=== PATIENT | female | born 1960 | race Caucasian/White ===

== ENCOUNTER 2017-06-09 12:20 | Inpatient (IN) | payer BC, OTHER ==
[~2017-06-09] VITALS: Ht 160 cm; Wt 85.5 kg
[~2017-06-09 12:20] MED LIST: ADVIN25050 INH; ALBUAER2 INH; DLN100; DRV100 PO
[2017-06-09] MEDS ORDERED: ERGO500037 PO (13:44)
[2017-06-09] MEDS ORDERED: CITA10TA4 PO (13:44)
[2017-06-09] MEDS ORDERED: OMEG12006 PO (13:44)
[2017-06-09] MEDS ORDERED: ASPI81TA28 PO (13:44)
[2017-06-09] MEDS ORDERED: LSN25 PO (13:44)
[2017-06-09] MEDS ORDERED: DULA1INJ SQ (13:44)
[2017-06-09] MEDS ORDERED: ATOR-26 PO (13:44)
[2017-06-09] MEDS ORDERED: PHN/100 PO (13:44)
[2017-06-09] MEDS ORDERED: METO50TA16 PO (13:44)
[2017-06-09] MEDS ORDERED: METF-384 PO (13:44)
[2017-06-09 14:16] LABS: BASO % 0.1 %; BASO ABS # 0.01 K/uL (0-0.2); COMPLETE YES; EOS % 1.6 %; HEMATOCRIT 37.8 % (37-47); IG% 0.2 %; LYMPH % 15.1 %; LYMPH ABS # 1.83 K/uL (1.2-3.4); MEAN CELL VOLUME 82.9 fL (80-100); MEAN CORPUSCULAR HEMOGLOBIN 29.2 pg (25-34); MEAN CORPUSCULAR HGB CONC 35.2 g/dl (32-36); MONO % 8.2 %; NEUT % 74.8 %; PLATELET COUNT 197 K/uL (130-400); RED BLOOD COUNT 4.56 M/uL (4.2-5.4); WHITE BLOOD COUNT 12.15 K/uL (4.8-10.8)
[2017-06-09] MEDS ORDERED: SODIUM CHLORIDE 0.9% 1000ML 1,000 ML IV STA (14:29)
[2017-06-09] MEDS ORDERED: MoRPHine SULFATE 4 MG/ML 1 ML CARP\\VIAL IV STA (14:29)
[2017-06-09] MEDS ORDERED: ONDANSETRON INJ 2 MG/ML 2 ML VIAL IV STA (14:29)
[2017-06-09 14:34] LABS: ALT/SGPT 42 U/L (12-78); BLOOD UREA NITROGEN 10 mg/dl (7-18); BUN/CREATININE RATIO 14.6 (10-20); CALCIUM 8.9 mg/dl (8.5-10.1); CARBON DIOXIDE 28 mmol/L (21-32); CHLORIDE 103 mmol/L (98-107); CREATININE 0.67 mg/dl (0.60-1.20); GLUCOSE 189 mg/dl (70-99); POTASSIUM 3.8 mmol/L (3.5-5.1); SODIUM 137 mmol/L (136-145)
[2017-06-09 14:37] LABS: ALB/GLOB RATIO 0.9 (0.9-2); ALKALINE PHOSPHATASE 223 U/L (45-117); AST/SGOT 19 U/L (15-37)
[2017-06-09 14:46] LABS: MANUAL MICROSCOPIC REQUIRED? YES; REVIEW REQ? NO; SULFASALICYLIC ACID NEG (NEG); URINE APPEARANCE CLEAR (CLEAR); URINE COLOR ORANGE
[2017-06-09 14:47] LABS: URINE SPECIFIC GRAVITY 1.033 (1.000-1.030)
[2017-06-09 14:53] LABS: URINE MUCUS PRESENT (NONE PRSENT)
[2017-06-09 14:56] LABS: URINE RBC 0-4 /hpf (0-4)
[2017-06-09 14:57] LABS: URINE BACTERIA NEG (NEG)
[2017-06-09 14:58] LABS: ZZUR CULT IF INDIC CLEAN CATCH NO
[2017-06-09] MEDS ORDERED: OPTIRAY 320 IV PRN (16:15)
--- NOTE | 2017-06-09 16:25 | DIAGNOSTIC IMAGING REPORT ---
CT OF THE ABDOMEN AND PELVIS WITH CONTRAST CLINICAL HISTORY: Lower abdominal pain. COMPARISON STUDY: None. TECHNIQUE: Following IV administration of 93 mL of Optiray-320, axial images of the abdomen and pelvis were obtained from the lung bases to the proximal femurs. Images were reviewed in the axial, sagittal, and coronal planes. IV contrast was administered without complication. A dose lowering technique was utilized adhering to the principles of ALARA. CT DOSE: 660.84 mGy.cm FINDINGS: The liver, spleen, left adrenal gland, kidneys and pancreas are normal. Note is made of a 2.3 cm intermediate attenuation right adrenal nodule. There is no biliary or pancreatic ductal dilatation. Note is made of moderate circumferential wall thickening of the mid sigmoid colon with moderate pericolonic infiltration. There are scattered colonic diverticula. Note is made of a 2.6 x 1.5 cm pericolonic fluid collection along the right lateral aspect of the sigmoid colon with mild peripheral enhancement which suggest a small abscess. The IVC is duplicated. No suspicious skeletal lesions are present. IMPRESSION: 1. Acute sigmoid diverticulitis with moderate circumferential wall thickening and associated pericolonic infiltration. 2.6 x 1.5 cm pericolonic abscess along the right lateral wall of the sigmoid colon. No free air. The wall thickening is likely inflammatory in etiology however a follow-up colonoscopy once the patient's symptoms resolve is recommended to exclude the possibility of an underlying mass. 2. 2.3 cm right adrenal nodule. This nodule is indeterminate although statistically benign in the absence of known malignancy. Electronically signed by: Malik Heaton M.D. 06/09/2017 4:24 PM Dictated Date/Time: 06/09/2017 4:15 PM
[2017-06-09] MEDS ORDERED: METRONIDAZOLE 500MG / 100ML NSS IV STA (16:29)
[2017-06-09] MEDS ORDERED: CIPROFLOXACIN 400MG / 200ML D5W IV STA (16:48)
[2017-06-09] MEDS ORDERED: CIPROFLOXACIN 400MG / 200ML D5W IV ONE (17:15)
[2017-06-09 17:32] VITALS: Ht 160 cm; Wt 85.5 kg
--- NOTE | 2017-06-09 17:35 | EMERGENCY ROOM VISIT NOTE ---
History Report prepared by Gonzalez: Desean Silva Under the Supervision of: Dr. Leon Enamorado D.O. First contact with patient: 14:07 Chief Complaint: ABDOMINAL PAIN Stated Complaint: BAD PAINS UNDER BELLY History of Present Illness The patient is a 57 year old female who presents to the Emergency Room with complaints of persistent lower abdominal pain beginning 2-3 weeks ago. She states that her pain resolved, but then returned yesterday. She has no history of abdominal surgeries. She denies any cough, urinary symptoms, runny nose, rash , vaginal discharge, nausea, vomiting, or diarrhea. Patient has no other complaints at this time. No history of diverticulitis. Movement does ache her pain worse. No real remitting factors. This pain has been significantly worsens last night. Source of History: patient Onset: 2-3 weeks ago Position: abdomen (lower) Timing: other (persistent) Modifying Factors (Worsening): other (none) Modifying Factors (Relieving): other (none) Associated Symptoms: No cough, No nausea, No vomiting, No urinary symptoms Note: The patient denies any vaginal discharge or runny nose. Review of Systems See HPI for pertinent positives & negatives. A total of 10 systems reviewed and were otherwise negative. Past Medical & Surgical Medical Problems: (1) No Known Active Medical Problems Family History No pertinent family history stated. Social History Smoking Status: Never Smoker Housing Status: lives with family Current/Historical Medications Scheduled Aspirin (Aspirin Ec), 81 MG PO DAILY Atorvastatin (Lipitor), 80 MG PO DAILY Citalopram Hydrobromide (Citalopram Hydrobromide), 1 TAB PO DAILY Dulaglutide (Trulicity), 0.75 MG SQ WK Ergocalciferol (Vitamin D 87158 Unit), 50,000 UNIT PO WK Lisinopril (Lisinopril), 2.5 MG PO DAILY Metformin Hcl (Glucophage), 1,000 MG PO BID Metoprolol Tartrate (Lopressor) (Lopressor), 50 MG PO BID [place]-3 Fatty Acids ([place] 3), 1 CAP PO BID Phenytoin Sodium (Dilantin), 300 MG PO BID Allergies Coded Allergies: No Known Allergies (Verified , 06/09/17) Physical Exam Vital Signs Date Time Temp Pulse Resp B/P (MAP) Pulse Ox O2 Delivery O2 Flow Rate FiO2 06/09/17 16:12 91 18 116/70 94 Room Air 06/09/17 15:00 99 18 123/77 94 Room Air 06/09/17 13:58 97 18 124/74 96 Room Air 06/09/17 12:22 37.0 116 17 146/80 94 Room Air Physical Exam GENERAL: Sitting up in bed, alert, well appearing, well nourished, no distress, non-toxic EYE EXAM: normal conjunctiva OROPHARYNX: no exudate, no erythema, lips, buccal mucosa, and tongue normal and mucous membranes are moist NECK: supple, no nuchal rigidity, no adenopathy, non-tender LUNGS: Clear to auscultation. Normal chest wall mechanics HEART: no murmurs, S1 normal and S2 normal ABDOMEN: abdomen soft, tenderness in the infraumbilical region, normo-active bowel sounds, no masses, no rebound or guarding. BACK: Back is symmetrical on inspection and there is no deformity, no midline tenderness, no CVA tenderness. SKIN: no rashes and no bruising UPPER EXTREMITIES: upper extremities are grossly normal. LOWER EXTREMITIES: No pitting edema. NEURO EXAM: Normal sensorium, cranial nerves II-XII grossly intact, normal speech, no gross weakness of arms, no gross weakness of legs. Medical Decision & Procedures ER Provider Diagnostic Interpretation: CT:Per my review, radiologist interpretation. CT OF THE ABDOMEN AND PELVIS WITH CONTRAST FINDINGS: The liver, spleen, left adrenal gland, kidneys and pancreas are normal. Note is made of a 2.3 cm intermediate attenuation right adrenal nodule. There is no biliary or pancreatic ductal dilatation. Note is made of moderate circumferential wall thickening of the mid sigmoid colon with moderate pericolonic infiltration. There are scattered colonic diverticula. Note is made of a 2.6 x 1.5 cm pericolonic fluid collection along the right lateral aspect of the sigmoid colon with mild peripheral enhancement which suggest a small abscess. The IVC is duplicated. No suspicious skeletal lesions are present. IMPRESSION: 1. Acute sigmoid diverticulitis with moderate circumferential wall thickening and associated pericolonic infiltration. 2.6 x 1.5 cm pericolonic abscess along the right lateral wall of the sigmoid colon. No free air. The wall thickening is likely inflammatory in etiology however a follow-up colonoscopy once the patient's symptoms resolve is recommended to exclude the possibility of an underlying mass. 2. 2.3 cm right adrenal nodule. This nodule is indeterminate although statistically benign in the absence of known malignancy. Electronically signed by: Malik Heaton M.D. Laboratory Results 06/09/17 13:58 Red Blood Count 4.56, Mean Corpuscular Volume 82.9, Mean Corpuscular Hemoglobin 29.2, Mean Corpuscular Hemoglobin Concent 35.2, Mean Platelet Volume 9.0, Neutrophils (%) (Auto) 74.8, Lymphocytes (%) (Auto) 15.1, Monocytes (%) (Auto) 8.2, Eosinophils (%) (Auto) 1.6, Basophils (%) (Auto) 0.1, Neutrophils # (Auto) 9.09, Lymphocytes # (Auto) 1.83, Monocytes # (Auto) 1.00, Eosinophils # (Auto) 0.19, Basophils # (Auto) 0.01 06/09/17 13:58 Test 06/09/17 13:58 White Blood Count 12.15 K/uL (4.8-10.8) Red Blood Count 4.56 M/uL (4.2-5.4) Hemoglobin 13.3 g/dL (12.0-16.0) Hematocrit 37.8 % (37-47) Mean Corpuscular Volume 82.9 fL (80-100) Mean Corpuscular Hemoglobin 29.2 pg (25-34) Mean Corpuscular Hemoglobin Concent 35.2 g/dl (32-36) Platelet Count 197 K/uL (130-400) Mean Platelet Volume 9.0 fL (7.4-10.4) Neutrophils (%) (Auto) 74.8 % Lymphocytes (%) (Auto) 15.1 % Monocytes (%) (Auto) 8.2 % Eosinophils (%) (Auto) 1.6 % Basophils (%) (Auto) 0.1 % Neutrophils # (Auto) 9.09 K/uL (1.4-6.5) Lymphocytes # (Auto) 1.83 K/uL (1.2-3.4) Monocytes # (Auto) 1.00 K/uL (0.11-0.59) Eosinophils # (Auto) 0.19 K/uL (0-0.5) Basophils # (Auto) 0.01 K/uL (0-0.2) RDW Standard Deviation 41.4 fL (36.4-46.3) RDW Coefficient of Variation 13.8 % (11.5-14.5) Immature Granulocyte % (Auto) 0.2 % Immature Granulocyte # (Auto) 0.03 K/uL (0.00-0.02) Urine Color ORANGE Urine Appearance CLEAR (CLEAR) Urine pH (4.5-7.5) Urine Specific [place] 1.033 (1.000-1.030) Urine Protein NEG (NEG) Urine Glucose (UA) (NEG) Urine Ketones (NEG) Urine Occult Blood (NEG) Urine Nitrite (NEG) Urine Bilirubin (NEG) Urine Urobilinogen (NEG) Urine Leukocyte Esterase (NEG) Urine WBC (Auto) /hpf (0-5) Urine RBC (Auto) /hpf (0-4) Urine Hyaline Casts (Auto) /lpf (0-5) Urine Epithelial Cells (Auto) /lpf (0-5) Urine Bacteria (Auto) (NEG) Urine RBC 0-4 /hpf (0-4) Urine WBC 1-5 /hpf (0-5) Urine Epithelial Cells 0-5 /lpf (0-5) Urine Bacteria NEG (NEG) Urine Mucus PRESENT (NONE PRSENT) Anion Gap 6.0 mmol/L (3-11) Est Creatinine Clear Calc Drug Dose 93.7 ml/min Estimated GFR () 111.5 Estimated GFR (Non- 96.2 BUN/Creatinine Ratio 14.6 (10-20) Calcium Level 8.9 mg/dl (8.5-10.1) Total Bilirubin 0.3 mg/dl (0.2-1) Direct Bilirubin < 0.1 mg/dl (0-0.2) Aspartate Amino Transf (AST/SGOT) 19 U/L (15-37) Alanine Aminotransferase (ALT/SGPT) 42 U/L (12-78) Alkaline Phosphatase 223 U/L (45-117) Total Protein 7.6 gm/dl (6.4-8.2) Albumin 3.5 gm/dl (3.4-5.0) Globulin 4.1 gm/dl (2.5-4.0) Albumin/Globulin Ratio 0.9 (0.9-2) Lipase 95 U/L (73-393) Laboratory results per my review. Medications Administered Medications (Trade) Dose Ordered Sig/Jane Route Start Time Stop Time Status Last Admin Dose Admin Sodium Chloride 1,000 ml @ 999 mls/hr Q1H1M STAT IV 06/09/17 14:29 06/09/17 15:29 DC 06/09/17 14:51 999 MLS/HR Ondansetron HCl (Zofran Inj) 4 mg NOW STAT IV 06/09/17 14:29 06/09/17 14:30 DC 06/09/17 14:53 4 MG Morphine Sulfate (MoRPHine SULFATE INJ) 4 mg NOW STAT IV 06/09/17 14:29 06/09/17 14:30 DC 06/09/17 14:54 4 MG Metronidazole (Flagyl / Nss) 500 mg NOW STAT IV 06/09/17 16:29 06/09/17 16:31 DC 06/09/17 16:50 500 MG ED Course ED COURSE: Vital signs were reviewed and showed borderline tachycardia. The patients medical record was reviewed The above diagnostic studies were performed and reviewed. ED treatments and interventions as stated above. 1425: The patient was evaluated in room B6. A complete history and physical examination was performed. 1429: Ordered Sodium Chloride 1000 ml @ 999 mls/hr IV, Zofran Inj 4 mg IV, Morphine Sulfate 4 mg IV. 1629: Ordered Flagyl / Sodium Chloride 500 ml @ mg mls/hr IV. 1715: Ordered Cipro / D5W 400 mg IV. Upon reevaluation, the patient is resting comfortably. I discussed my findings with the patient and she understands and agrees with the treatment plan. Based on the patients age, coexisting illnesses, exam and lab findings the decision to treat as an inpatient was made. The patient remained stable while under my care. The patient will be evaluated for further management. Medical Decision Differential diagnoses includes but is not limited to gastritis, peptic ulcer disease, GERD, gallbladder disease, pancreatitis, small bowel obstruction, acute coronary syndrome, pericarditis, ischemic bowel, irritable bowel disease, irritable bowel syndrome, appendicitis, diverticulitis, malignancy, hernia, urinary tract infection, torsion, perforation, trauma, infectious. Patient is a 57-year-old female who presents the ER for lower abdominal pain which has been present off-and-on for the past week. She is slightly tachycardic. White count 12,000. BMP along with LFTs, bilirubin and lipase was unremarkable. UA was unremarkable. CT of the abdomen and pelvis shows diverticulitis with a small sigmoid abscess. I discussed this with general surgery and they agreed with observation overnight and IV antibiotics including Cipro and Flagyl. Patient was updated at bedside. She was discussed with internal medicine and will be admitted for further workup. Medication Reconcilliation Current Medication List: was personally reviewed by me Blood Pressure Screening Patient's blood pressure: Elevated blood pressure Blood pressure disposition: Elevated BP felt to be situational Consults Time Called: 1631 Consulting Physician: Dr. Starr -General Surgery Returned Call: [phone] I reviewed the patient's case with Dr. Starr. General surgery will consult on the patient. Additional Consults: Time Called: 1700 Consulted Physician: Cecelia Esposito Returned Call: [phone] Additional Comments: I reviewed the patient's case with Cecelia Piedra will evaluate the patient for further management. Impression Primary Impression: Diverticulitis of intestine with abscess Scribe Attestation The scribe's documentation has been prepared under my direction and personally reviewed by me in its entirety. I confirm that the note above accurately reflects all work, treatment, procedures, and medical decision making performed by me. Departure Information Dispostion Being Evaluated By Hospitalist Referrals Sonia Martin D.O. (PCP) Patient Instructions My [facility] Problem Qualifiers Primary Impression: Diverticulitis of intestine with abscess Diverticulitis site: large intestine Diverticulitis bleeding: without bleeding Qualified Codes: K57.20 - Diverticulitis of large intestine with perforation and abscess without bleeding
[2017-06-09] MEDS ORDERED: ONDANSETRON INJ 2 MG/ML 2 ML VIAL IV PRN (18:00)
[2017-06-09] MEDS ORDERED: DEXTROSE 50% 50 ML SYR IV PRN (18:15)
[2017-06-09] MEDS ORDERED: GLUCOSE 40% GEL 15 GM TUBE PO PRN (18:15)
[2017-06-09] MEDS ORDERED: GLUCOSE 10 TABS/TUBE PO PRN (18:15)
[2017-06-09] MEDS ORDERED: GLUCAGON FOR INJ 1 MG VIAL SQ PRN (18:15)
[2017-06-09] MEDS ORDERED: MoRPHine SULFATE 4 MG/ML 1 ML CARP\\VIAL ONE (18:16)
[2017-06-09] MEDS: MoRPHine SULFATE 4 MG/ML 1 ML CARP\\VIAL IV PRN ×2 (18:34→21:58)
--- NOTE | 2017-06-09 18:55 | History and Physical ---
History & Physical Date & Time of Service: Jun 09, 2017 at 18:25 Chief Complaint: Bad Pains Under Belly Primary Care Physician: Sonia Martin D.O. History of Present Illness Source: patient, clinic records This is a 57 y/o female with PMH of DM type 2, HTN, HL, epilepsy, who presents to the ED with abdominal pain. Patient reports LLQ abdominal pain x 2 weeks. Initially thought she had a UTI, took Azo and started to feel better, then pain worsened again yesterday. Describes pain as stabbing in LLQ. Morphine in ER helped but now pain is back rated 10/10. No provoking factors. Had 2 episodes of diarrhea yesterday then formed stool, last BM earlier today. Appetite is normal. Denies fevers, chills, weakness, dizziness, chest pain, SOB, N/V, GI bleeding, dysuria, frequency, weight loss. Denies recent travel or antibiotics. No prior episode of diverticulitis. Never had colonoscopy. No abdominal surgeries. Past Medical/Surgical History Medical Problems: (1) DM type 2 (diabetes mellitus, type 2) Status: Chronic (2) Dyslipidemia Status: Chronic (3) Epilepsy Status: Chronic (4) Hypertension Status: Chronic Surgical Problems: (1) History of knee surgery Status: Chronic Family History FH: thyroid cancer Denies family hx of colon cancer. Social History Smoking Status: Never Smoker Alcohol Use: none Immunizations History of Influenza Vaccine: N/A History of Tetanus Vaccine?: Yes History of Pneumococcal: No History of Hepatitis B Vaccine: Yes Multi-Drug Resistant Organisms History of MDRO: No Allergies Coded Allergies: No Known Allergies (Verified , 06/09/17) Home Medications Scheduled Aspirin (Aspirin Ec), 81 MG PO DAILY Atorvastatin (Lipitor), 80 MG PO DAILY Citalopram Hydrobromide (Citalopram Hydrobromide), 1 TAB PO DAILY Dulaglutide (Trulicity), 0.75 MG SQ WK Ergocalciferol (Vitamin D 48121 Unit), 50,000 UNIT PO WK Lisinopril (Lisinopril), 2.5 MG PO DAILY Metformin Hcl (Glucophage), 1,000 MG PO BID Metoprolol Tartrate (Lopressor) (Lopressor), 50 MG PO BID [place]-3 Fatty Acids ([place] 3), 1 CAP PO BID Phenytoin Sodium (Dilantin), 300 MG PO BID Review of Systems Ten systems reviewed and negative except as noted in HPI. Physical Exam Vital Signs Date Time Temp Pulse Resp B/P (MAP) Pulse Ox O2 Delivery O2 Flow Rate FiO2 06/09/17 17:32 Room Air 06/09/17 16:12 91 18 116/70 94 Room Air 06/09/17 15:00 99 18 123/77 94 Room Air 06/09/17 13:58 97 18 124/74 96 Room Air 06/09/17 12:22 37.0 116 17 146/80 94 Room Air General Appearance: WD/WN, no apparent distress Head: normocephalic, atraumatic Eyes: normal inspection, PERRL, EOMI ENT: hearing grossly normal, pharynx normal Neck: supple, trachea midline Respiratory/Chest: lungs clear, normal breath sounds, no respiratory distress, no accessory muscle use Cardiovascular: no murmur, + tachycardia (mildly tachycardic, HR 100, regular rhythm) Abdomen/GI: normal bowel sounds, soft, + pertinent finding (tenderness across entire lower abdomen, especially LLQ. no rebound. no guarding. ) Extremities/Musculoskelatal: no calf tenderness, no pedal edema Neurologic/Psych: alert, normal mood/affect, oriented x 3 Skin: normal color, warm/dry Diagnostics Laboratory Results Results Past 24 Hours Test 06/09/17 13:58 06/09/17 17:43 06/09/17 18:00 06/09/17 18:24 Range/Units White Blood Count 12.15 4.8-10.8 K/uL Red Blood Count 4.56 4.2-5.4 M/uL Hemoglobin 13.3 12.0-16.0 g/dL Hematocrit 37.8 37-47 % Mean Corpuscular Volume 82.9 80-100 fL Mean Corpuscular Hemoglobin 29.2 25-34 pg Mean Corpuscular Hemoglobin Concent 35.2 32-36 g/dl Platelet Count 197 130-400 K/uL Mean Platelet Volume 9.0 7.4-10.4 fL Neutrophils (%) (Auto) 74.8 % Lymphocytes (%) (Auto) 15.1 % Monocytes (%) (Auto) 8.2 % Eosinophils (%) (Auto) 1.6 % Basophils (%) (Auto) 0.1 % Neutrophils # (Auto) 9.09 1.4-6.5 K/uL Lymphocytes # (Auto) 1.83 1.2-3.4 K/uL Monocytes # (Auto) 1.00 0.11-0.59 K/uL Eosinophils # (Auto) 0.19 0-0.5 K/uL Basophils # (Auto) 0.01 0-0.2 K/uL RDW Standard Deviation 41.4 36.4-46.3 fL RDW Coefficient of Variation 13.8 11.5-14.5 % Immature Granulocyte % (Auto) 0.2 % Immature Granulocyte # (Auto) 0.03 0.00-0.02 K/uL Urine Color ORANGE Urine Appearance CLEAR CLEAR Urine pH 4.5-7.5 Urine Specific [place] 1.033 1.000-1.030 Urine Protein NEG NEG Urine Glucose (UA) NEG Urine Ketones NEG Urine Occult Blood NEG Urine Nitrite NEG Urine Bilirubin NEG Urine Urobilinogen NEG Urine Leukocyte Esterase NEG Urine WBC (Auto) 0-5 /hpf Urine RBC (Auto) 0-4 /hpf Urine Hyaline Casts (Auto) 0-5 /lpf Urine Epithelial Cells (Auto) 0-5 /lpf Urine Bacteria (Auto) NEG Urine RBC 0-4 0-4 /hpf Urine WBC 1-5 0-5 /hpf Urine Epithelial Cells 0-5 0-5 /lpf Urine Bacteria NEG NEG Urine Mucus PRESENT NONE PRSENT Sodium Level 137 136-145 mmol/L Potassium Level 3.8 3.5-5.1 mmol/L Chloride Level 103 98-107 mmol/L Carbon Dioxide Level 28 21-32 mmol/L Anion Gap 6.0 3-11 mmol/L Blood Urea Nitrogen 10 7-18 mg/dl Creatinine 0.67 0.60-1.20 mg/dl Est Creatinine Clear Calc Drug Dose 93.7 ml/min Estimated GFR () 111.5 Estimated GFR (Non- 96.2 BUN/Creatinine Ratio 14.6 10-20 Random Glucose 189 70-99 mg/dl Calcium Level 8.9 8.5-10.1 mg/dl Total Bilirubin 0.3 0.2-1 mg/dl Direct Bilirubin < 0.1 0-0.2 mg/dl Aspartate Amino Transf (AST/SGOT) 19 15-37 U/L Alanine Aminotransferase (ALT/SGPT) 42 12-78 U/L Alkaline Phosphatase 223 45-117 U/L Total Protein 7.6 6.4-8.2 gm/dl Albumin 3.5 3.4-5.0 gm/dl Globulin 4.1 2.5-4.0 gm/dl Albumin/Globulin Ratio 0.9 0.9-2 Lipase 95 73-393 U/L Diagnostic Radiology CT OF THE ABDOMEN AND PELVIS WITH CONTRAST IMPRESSION: 1. Acute sigmoid diverticulitis with moderate circumferential wall thickening and associated pericolonic infiltration. 2.6 x 1.5 cm pericolonic abscess along the right lateral wall of the sigmoid colon. No free air. The wall thickening is likely inflammatory in etiology however a follow-up colonoscopy once the patient's symptoms resolve is recommended to exclude the possibility of an underlying mass. 2. 2.3 cm right adrenal nodule. This nodule is indeterminate although statistically benign in the absence of known malignancy. Impression Assessment and Plan ACUTE SIGMOID DIVERTICULITIS WITH ABSCESS Initial episode Afebrile, + leukocytosis (WBC slightly >12K), mild tachycardia (HR 90's-100's), check lactic acid IV Cipro and Flagyl, IVF's, PRN morphine Clear liquid diet Consult general surgery- Dr. Starr made aware by ER provider MODERATE COLON WALL THICKENING Seen on CT, radiology read as likely inflammatory but recommended f/u colonoscopy to exclude underlying mass Alk phos elevated Check CEA Outpatient colonoscopy ADRENAL NODULE CT a/p- 2.3 cm right adrenal nodule. This nodule is indeterminate although statistically benign in the absence of known malignancy. F/u as outpatient DM TYPE 2 Hold metformin and Trulicity Novolog sliding scale coverage HYPERTENSION Stable, continue lisinopril and metoprolol EPILEPSY Controlled- no recent seizure Continue Dilantin DYSLIPIDEMIA Continue statin DVT PROPHYLAXIS SCD's, Heparin SQ DISPOSITION Admission to med/ surg Follows with Dr. Martin for primary care Patient seen in collaboration with Dr. Aguilar. Please see his addendum. ADDENDUM: I saw this patient in the ER, in room B6 - she presented with severe abdominal pain; had a few episodes of diarrhea, denies bleeding. Pain persisted even without her trying OTC Azo for what she thought was a UTI Upon presentation, had CT abdomen done - showed an acute diverticulitis with abscess started on IV abx. IVFs, clear liquids surgery consult pending Advanced Directives Existing Living Will: No Existing Power of Sales And Operations Trainee: No VTE Prophylaxis VTE Risk Assessment Done? Y/N: Yes Risk Level: Moderate Given or contraindicated: Unfractionated heparin SQ, SCD's
[2017-06-09 19:45] VITALS: BP 118/70; PULSE 101; TEMP 37.6; O2SAT 92
[2017-06-09 20:29] LABS: PROTHROMBIN TIME (PATIENT) 10.5 SECONDS (9.0-12.0)
[2017-06-09] MEDS: SODIUM CHLORIDE 0.9% 1000ML 1,000 ML IV SCH (21:27)
[2017-06-09] MEDS: OMEGA-3 (PURIFIED FISH OIL) 1 GM CAP PO SCH (21:29)
[2017-06-09] MEDS: METOPROLOL TARTRATE 50 MG TAB PO SCH (21:31)
[2017-06-09] MEDS: INSULIN ASPART 100 UNITS/ML 3 ML PEN SC SCH (21:40)
[2017-06-09] MEDS: HEPARIN SOD 5000 UNIT/0.5 ML CARP SQ SCH (21:41)
[2017-06-09] MEDS: PHENYTOIN SODIUM ER 100 MG CAP PO SCH (21:42)
[2017-06-09 22:56] VITALS: BP 112/70; PULSE 96; TEMP 37; O2SAT 94
[2017-06-09] MEDS: ACETAMINOPHEN 325 MG TAB PO PRN (23:57)
[2017-06-09] MEDS: METRONIDAZOLE / NSS 500 MG in PREMIXED NSS 100 ML IV SCH (23:57)
[2017-06-10] MEDS: SODIUM CHLORIDE 0.9% 1000ML 1,000 ML IV SCH ×3 (04:17→23:21)
[2017-06-10] MEDS: MoRPHine SULFATE 4 MG/ML 1 ML CARP\\VIAL IV PRN (05:45)
[2017-06-10] MEDS: CIPROFLOXACIN / D5W 400 MG in PREMIXED IN D5W 200 ML IV SCH ×2 (05:45→18:30)
[2017-06-10] MEDS: HEPARIN SOD 5000 UNIT/0.5 ML CARP SQ SCH ×3 (05:45→21:35)
[2017-06-10] MEDS ORDERED: CIPROFLOXACIN 400MG / 200ML D5W IV ONE (06:00)
[2017-06-10 06:32] LABS: HEMATOCRIT 32.5 % (37-47); MEAN CELL VOLUME 83.8 fL (80-100); MEAN CORPUSCULAR HEMOGLOBIN 28.6 pg (25-34); MEAN CORPUSCULAR HGB CONC 34.2 g/dl (32-36); MEAN PLATELET VOLUME 9.1 fL (7.4-10.4); PLATELET COUNT 156 K/uL (130-400); RED BLOOD COUNT 3.88 M/uL (4.2-5.4); WHITE BLOOD COUNT 10.18 K/uL (4.8-10.8)
[2017-06-10 06:59] VITALS: BP 113/72; PULSE 101; TEMP 37.2; O2SAT 91
[2017-06-10] MEDS: METRONIDAZOLE / NSS 500 MG in PREMIXED NSS 100 ML IV SCH ×3 (08:17→23:21)
[2017-06-10] MEDS ORDERED: ASPIRIN 81 MG ECTAB PO SCH (09:00)
[2017-06-10] MEDS: PHENYTOIN SODIUM ER 100 MG CAP PO SCH ×2 (09:11→21:27)
[2017-06-10 09:14] VITALS: BP 117/74; PULSE 100
[2017-06-10] MEDS: METOPROLOL TARTRATE 50 MG TAB PO SCH ×2 (09:14→21:27)
[2017-06-10] MEDS: CITALOPRAM 20 MG TAB PO SCH (09:15)
[2017-06-10] MEDS: LISINOPRIL 2.5 MG TAB PO SCH (09:16)
[2017-06-10] MEDS: ATORVASTATIN 40 MG TAB PO SCH (09:16)
[2017-06-10] MEDS: OMEGA-3 (PURIFIED FISH OIL) 1 GM CAP PO SCH ×2 (09:17→21:27)
[2017-06-10] MEDS: INSULIN ASPART 100 UNITS/ML 3 ML PEN SC SCH ×4 (09:21→21:00)
--- NOTE | 2017-06-10 11:38 | Surgery Consultation ---
Consultation Date of Consultation: Jun 10, 2017. Attending Physician: Sravanthi Aguilar DO History of Present Illness pt presented with lower abdominal pain.... ct findings of acute diverticulitis. feeling better now than at admission. Past Medical/Surgical History Medical Problems: (1) Diverticulitis of intestine with abscess Status: Acute Family History FH: thyroid cancer Social History Smoking Status: Never Smoker Alcohol Use: none Housing Status: lives with family Allergies Coded Allergies: No Known Allergies (Verified , 06/09/17) Home Medications Scheduled Aspirin (Aspirin Ec), 81 MG PO DAILY Atorvastatin (Lipitor), 80 MG PO DAILY Citalopram Hydrobromide (Citalopram Hydrobromide), 1 TAB PO DAILY Dulaglutide (Trulicity), 0.75 MG SQ WK Ergocalciferol (Vitamin D 76436 Unit), 50,000 UNIT PO WK Lisinopril (Lisinopril), 2.5 MG PO DAILY Metformin Hcl (Glucophage), 1,000 MG PO BID Metoprolol Tartrate (Lopressor) (Lopressor), 50 MG PO BID Palmetto-3 Fatty Acids (Palmetto 3), 1 CAP PO BID Phenytoin Sodium (Dilantin), 300 MG PO BID Current Inpatient Medications Current Inpatient Medications Medications (Trade) Dose Ordered Sig/Jane Route Start Time Stop Time Status Last Admin Dose Admin Ioversol (Optiray 320) 111 ml UD PRN IV 06/09/17 16:15 06/13/17 16:14 Morphine Sulfate (MoRPHine SULFATE INJ) 4 mg Q4H PRN IV 06/09/17 18:00 06/23/17 17:59 06/10/17 05:45 4 MG Sodium Chloride 1,000 ml @ 100 mls/hr Q10H IV 06/09/17 18:00 07/09/17 17:59 06/10/17 04:17 100 MLS/HR Acetaminophen (Tylenol Tab) 650 mg Q4H PRN PO 06/09/17 18:00 07/09/17 17:59 06/09/17 23:57 650 MG Ondansetron HCl (Zofran Inj) 4 mg Q6H PRN IV 06/09/17 18:00 07/09/17 17:59 06/10/17 05:54 4 MG Insulin Aspart (novoLOG ASPART) SLIDING SCALE If C... ACHS SC 06/09/17 21:00 07/09/17 20:59 06/10/17 09:21 9 UNITS Glucose (Glucose 40% Gel) 15-30 GRAMS 15 GRAMS... UD PRN PO 06/09/17 18:15 07/09/17 18:14 Glucose (Glucose Chew Tab) 4-8 Tablets 4 Tabl... UD PRN PO 06/09/17 18:15 07/09/17 18:14 Dextrose (Dextrose 50% 50ML Syringe) 25-50ML OF 50% DW IV FOR... UD PRN IV 06/09/17 18:15 07/09/17 18:14 Glucagon (Glucagon Inj) 1 mg UD PRN SQ 06/09/17 18:15 07/09/17 18:14 Atorvastatin Calcium (Lipitor Tab) 80 mg DAILY PO 06/10/17 09:00 07/10/17 08:59 06/10/17 09:16 80 MG Lisinopril (Zestril Tab) 2.5 mg DAILY PO 06/10/17 09:00 07/10/17 08:59 06/10/17 09:16 2.5 MG Metoprolol Tartrate (Lopressor Tab) 50 mg BID PO 06/09/17 21:00 07/09/17 20:59 06/10/17 09:14 50 MG Phenytoin Sodium (Dilantin Er Cap) 300 mg BID PO 06/09/17 21:00 07/09/17 20:59 06/10/17 09:11 300 MG Citalopram Hydrobromide (celeXA TAB) 10 mg DAILY PO 06/10/17 09:00 07/10/17 08:59 06/10/17 09:15 10 MG Fish Oil (Palmet[place]-3 (Purified Fish Oil) Cap) 1 gm BID PO 06/09/17 21:00 07/09/17 20:59 06/10/17 09:17 1 GM Heparin Sodium (Porcine) (Heparin Sq 5000 Unit/0.5ml) 5,000 unit Q8 SQ 06/09/17 22:00 07/09/17 21:59 06/10/17 05:45 5,000 UNIT Metronidazole 500 mg/Prmx 100 ml @ 100 mls/hr Q8H IV 06/10/17 00:00 06/20/17 00:00 06/10/17 08:17 100 MLS/HR Ciprofloxacin/ Dextrose 400 mg/ Prmx 200 ml @ 100 mls/hr Q12H IV 06/10/17 06:00 06/20/17 05:59 06/10/17 05:45 100 MLS/HR Review of Systems Abdomen: + pain Physical Exam Date Time Temp Pulse Resp B/P (MAP) Pulse Ox O2 Delivery O2 Flow Rate FiO2 06/10/17 09:14 100 117/74 (88) 06/10/17 06:59 37.2 101 16 113/72 (86) 91 Room Air 06/09/17 23:50 Room Air 06/09/17 22:56 37.0 96 16 112/70 (84) 94 Room Air 06/09/17 19:45 Room Air 06/09/17 19:45 37.6 101 18 118/70 (86) 92 Room Air 06/09/17 19:25 97 18 124/74 96 Room Air 06/09/17 18:44 37.0 97 18 124/74 96 06/09/17 18:35 92 18 117/70 94 Room Air 06/09/17 17:32 Room Air 06/09/17 16:12 91 18 116/70 94 Room Air 06/09/17 15:00 99 18 123/77 94 Room Air 06/09/17 13:58 97 18 124/74 96 Room Air 06/09/17 12:22 37.0 116 17 146/80 94 Room Air General Appearance: no apparent distress Head: normocephalic, atraumatic Eyes: PERRL, EOMI ENT: hearing grossly normal Neck: supple Respiratory/Chest: no respiratory distress, no accessory muscle use Abdomen/GI: soft, + pertinent finding (+suprapubic/LLQ ttp. no peritoneal signs ) Neurologic/Psych: alert, oriented x 3 Skin: normal color, warm/dry, no rash Laboratory Results Last 24 Hours Test 06/09/17 13:58 06/09/17 19:42 06/09/17 20:10 06/09/17 20:43 White Blood Count 12.15 K/uL Red Blood Count 4.56 M/uL Hemoglobin 13.3 g/dL Hematocrit 37.8 % Mean Corpuscular Volume 82.9 fL Mean Corpuscular Hemoglobin 29.2 pg Mean Corpuscular Hemoglobin Concent 35.2 g/dl Platelet Count 197 K/uL Mean Platelet Volume 9.0 fL Neutrophils (%) (Auto) 74.8 % Lymphocytes (%) (Auto) 15.1 % Monocytes (%) (Auto) 8.2 % Eosinophils (%) (Auto) 1.6 % Basophils (%) (Auto) 0.1 % Neutrophils # (Auto) 9.09 K/uL Lymphocytes # (Auto) 1.83 K/uL Monocytes # (Auto) 1.00 K/uL Eosinophils # (Auto) 0.19 K/uL Basophils # (Auto) 0.01 K/uL RDW Standard Deviation 41.4 fL RDW Coefficient of Variation 13.8 % Immature Granulocyte % (Auto) 0.2 % Immature Granulocyte # (Auto) 0.03 K/uL Urine Color ORANGE Urine Appearance CLEAR Urine pH Urine Specific [place] 1.033 Urine Protein NEG Urine Glucose (UA) Urine Ketones Urine Occult Blood Urine Nitrite Urine Bilirubin Urine Urobilinogen Urine Leukocyte Esterase Urine WBC (Auto) /hpf Urine RBC (Auto) /hpf Urine Hyaline Casts (Auto) /lpf Urine Epithelial Cells (Auto) /lpf Urine Bacteria (Auto) Urine RBC 0-4 /hpf Urine WBC 1-5 /hpf Urine Epithelial Cells 0-5 /lpf Urine Bacteria NEG Urine Mucus PRESENT Sodium Level 137 mmol/L Potassium Level 3.8 mmol/L Chloride Level 103 mmol/L Carbon Dioxide Level 28 mmol/L Anion Gap 6.0 mmol/L Blood Urea Nitrogen 10 mg/dl Creatinine 0.67 mg/dl Est Creatinine Clear Calc Drug Dose 93.7 ml/min Estimated GFR () 111.5 Estimated GFR (Non- 96.2 BUN/Creatinine Ratio 14.6 Random Glucose 189 mg/dl Calcium Level 8.9 mg/dl Total Bilirubin 0.3 mg/dl Direct Bilirubin < 0.1 mg/dl Aspartate Amino Transf (AST/SGOT) 19 U/L Alanine Aminotransferase (ALT/SGPT) 42 U/L Alkaline Phosphatase 223 U/L Total Protein 7.6 gm/dl Albumin 3.5 gm/dl Globulin 4.1 gm/dl Albumin/Globulin Ratio 0.9 Lipase 95 U/L Bedside Glucose 187 mg/dl 235 mg/dl Prothrombin Time 10.5 SECONDS Prothromb Time International Ratio 1.0 Activated Partial Thromboplast Time 25.9 SECONDS Partial Thromboplastin Ratio 1.0 Lactic Acid Level 1.6 mmol/L Carcinoembryonic Antigen 33.5 ng/ml Test 06/10/17 06:10 06/10/17 07:58 White Blood Count 10.18 K/uL Red Blood Count 3.88 M/uL Hemoglobin 11.1 g/dL Hematocrit 32.5 % Mean Corpuscular Volume 83.8 fL Mean Corpuscular Hemoglobin 28.6 pg Mean Corpuscular Hemoglobin Concent 34.2 g/dl RDW Standard Deviation 43.1 fL RDW Coefficient of Variation 14.1 % Platelet Count 156 K/uL Mean Platelet Volume 9.1 fL Bedside Glucose 263 mg/dl Assessment & Plan acute diverticulitis first episode has never had colonoscopy. will need in 6 weeks or so responding so far to nonoperative tx will continue to follow. at her age/severity of disease may be a candidate for elective resection in near future.
[2017-06-10 15:30] VITALS: BP 110/70; PULSE 91; TEMP 36.9; O2SAT 92
[2017-06-10] MEDS: ACETAMINOPHEN 325 MG TAB PO PRN ×2 (15:34→21:35)
--- NOTE | 2017-06-10 16:53 | Progress Note ---
Subjective Date of Service: Jun 10, 2017. Subjective Pt evaluation today including: conversation w/ patient, physical exam, lab review, review of studies, review of inpatient medication list Saw/examined the patient in room 361 She's doing better than yesterday - abdominal pain is still present, but improving Tolerating clear liquids was nauseous this morning, but improved now Problem List Medical Problems: (1) Diverticulitis of intestine with abscess Status: Acute Review of Systems Constitutional: No fever, No chills Abdomen: + pain, + nausea, No vomiting, No diarrhea, No constipation, No GI bleeding Medications Current Inpatient Medications Medications (Trade) Dose Ordered Sig/Jane Route Start Time Stop Time Status Last Admin Dose Admin Ioversol (Optiray 320) 111 ml UD PRN IV 06/09/17 16:15 06/13/17 16:14 Morphine Sulfate (MoRPHine SULFATE INJ) 4 mg Q4H PRN IV 06/09/17 18:00 06/23/17 17:59 06/10/17 05:45 4 MG Sodium Chloride 1,000 ml @ 100 mls/hr Q10H IV 06/09/17 18:00 07/09/17 17:59 06/10/17 13:39 100 MLS/HR Acetaminophen (Tylenol Tab) 650 mg Q4H PRN PO 06/09/17 18:00 07/09/17 17:59 06/10/17 15:34 650 MG Ondansetron HCl (Zofran Inj) 4 mg Q6H PRN IV 06/09/17 18:00 07/09/17 17:59 06/10/17 05:54 4 MG Insulin Aspart (novoLOG ASPART) SLIDING SCALE If C... ACHS SC 06/09/17 21:00 07/09/17 20:59 06/10/17 13:38 3 UNITS Glucose (Glucose 40% Gel) 15-30 GRAMS 15 GRAMS... UD PRN PO 06/09/17 18:15 07/09/17 18:14 Glucose (Glucose Chew Tab) 4-8 Tablets 4 Tabl... UD PRN PO 06/09/17 18:15 07/09/17 18:14 Dextrose (Dextrose 50% 50ML Syringe) 25-50ML OF 50% DW IV FOR... UD PRN IV 06/09/17 18:15 07/09/17 18:14 Glucagon (Glucagon Inj) 1 mg UD PRN SQ 06/09/17 18:15 07/09/17 18:14 Atorvastatin Calcium (Lipitor Tab) 80 mg DAILY PO 06/10/17 09:00 07/10/17 08:59 06/10/17 09:16 80 MG Lisinopril (Zestril Tab) 2.5 mg DAILY PO 06/10/17 09:00 07/10/17 08:59 06/10/17 09:16 2.5 MG Metoprolol Tartrate (Lopressor Tab) 50 mg BID PO 06/09/17 21:00 07/09/17 20:59 06/10/17 09:14 50 MG Phenytoin Sodium (Dilantin Er Cap) 300 mg BID PO 06/09/17 21:00 07/09/17 20:59 06/10/17 09:11 300 MG Citalopram Hydrobromide (celeXA TAB) 10 mg DAILY PO 06/10/17 09:00 07/10/17 08:59 06/10/17 09:15 10 MG Fish Oil ([place]-3 (Purified Fish Oil) Cap) 1 gm BID PO 06/09/17 21:00 07/09/17 20:59 06/10/17 09:17 1 GM Heparin Sodium (Porcine) (Heparin Sq 5000 Unit/0.5ml) 5,000 unit Q8 SQ 06/09/17 22:00 07/09/17 21:59 06/10/17 13:39 5,000 UNIT Metronidazole 500 mg/Prmx 100 ml @ 100 mls/hr Q8H IV 06/10/17 00:00 06/20/17 00:00 06/10/17 15:34 100 MLS/HR Ciprofloxacin/ Dextrose 400 mg/ Prmx 200 ml @ 100 mls/hr Q12H IV 06/10/17 06:00 06/20/17 05:59 06/10/17 05:45 100 MLS/HR Objective Vital Signs Date Time Temp Pulse Resp B/P (MAP) Pulse Ox O2 Delivery O2 Flow Rate FiO2 06/10/17 15:30 36.9 91 18 110/70 (83) 92 Room Air 06/10/17 15:30 Room Air 06/10/17 09:14 100 117/74 (88) 06/10/17 07:30 Room Air 06/10/17 06:59 37.2 101 16 113/72 (86) 91 Room Air 06/09/17 23:50 Room Air 06/09/17 22:56 37.0 96 16 112/70 (84) 94 Room Air 06/09/17 19:45 Room Air 06/09/17 19:45 37.6 101 18 118/70 (86) 92 Room Air 06/09/17 19:25 97 18 124/74 96 Room Air 06/09/17 18:44 37.0 97 18 124/74 96 06/09/17 18:35 92 18 117/70 94 Room Air 06/09/17 17:32 Room Air Physical Exam General Appearance: no apparent distress Respiratory/Chest: no respiratory distress, no accessory muscle use Abdomen: normal bowel sounds, + tenderness Laboratory Results Last 24 Hours Test 06/09/17 19:42 06/09/17 20:10 06/09/17 20:43 06/10/17 06:10 Bedside Glucose 187 mg/dl 235 mg/dl Prothrombin Time 10.5 SECONDS Prothromb Time International Ratio 1.0 Activated Partial Thromboplast Time 25.9 SECONDS Partial Thromboplastin Ratio 1.0 Lactic Acid Level 1.6 mmol/L Carcinoembryonic Antigen 33.5 ng/ml White Blood Count 10.18 K/uL Red Blood Count 3.88 M/uL Hemoglobin 11.1 g/dL Hematocrit 32.5 % Mean Corpuscular Volume 83.8 fL Mean Corpuscular Hemoglobin 28.6 pg Mean Corpuscular Hemoglobin Concent 34.2 g/dl RDW Standard Deviation 43.1 fL RDW Coefficient of Variation 14.1 % Platelet Count 156 K/uL Mean Platelet Volume 9.1 fL Test 06/10/17 07:58 06/10/17 12:05 Bedside Glucose 263 mg/dl 177 mg/dl Assessment and Plan ACUTE SIGMOID DIVERTICULITIS WITH ABSCESS 06/10 plan to continue IV abx. for now clears and advance, possibly on 06/11 no white count, afebrile IVFs will need colonoscopy in 6 weeks Initial episode Afebrile, + leukocytosis (WBC slightly >12K), mild tachycardia (HR 90's-100's), check lactic acid IV Cipro and Flagyl, IVF's, PRN morphine Clear liquid diet Consult general surgery- Dr. Starr made aware by ER provider MODERATE COLON WALL THICKENING Seen on CT, radiology read as likely inflammatory but recommended f/u colonoscopy to exclude underlying mass Alk phos elevated Check CEA Outpatient colonoscopy ADRENAL NODULE CT a/p- 2.3 cm right adrenal nodule. This nodule is indeterminate although statistically benign in the absence of known malignancy. F/u as outpatient DM TYPE 2 Hold metformin and Trulicity Novolog sliding scale coverage HYPERTENSION Stable, continue lisinopril and metoprolol EPILEPSY Controlled- no recent seizure Continue Dilantin DYSLIPIDEMIA Continue statin DVT PROPHYLAXIS SCD's, Heparin SQ DISPOSITION Admission to med/ surg Follows with Dr. Martin for primary care Patient seen in collaboration with Dr. Aguilar. Please see his addendum.
[2017-06-10 21:25] VITALS: BP 155/72; PULSE 91
[2017-06-10 23:23] VITALS: BP 108/73; PULSE 83; TEMP 37; O2SAT 91
[2017-06-11] MEDS: CIPROFLOXACIN / D5W 400 MG in PREMIXED IN D5W 200 ML IV SCH ×2 (05:44→17:33)
[2017-06-11] MEDS: HEPARIN SOD 5000 UNIT/0.5 ML CARP SQ SCH ×3 (05:54→21:30)
[2017-06-11] MEDS: ACETAMINOPHEN 325 MG TAB PO PRN ×3 (05:58→19:30)
[2017-06-11 06:55] LABS: HEMATOCRIT 31.2 % (37-47); MEAN CELL VOLUME 85.7 fL (80-100); MEAN CORPUSCULAR HGB CONC 32.7 g/dl (32-36); MEAN PLATELET VOLUME 9.1 fL (7.4-10.4); PLATELET COUNT 139 K/uL (130-400); RED BLOOD COUNT 3.64 M/uL (4.2-5.4)
[2017-06-11 07:31] LABS: BUN/CREATININE RATIO 9.6 (10-20); CALCIUM 8.3 mg/dl (8.5-10.1); CREATININE 0.55 mg/dl (0.60-1.20); POTASSIUM 3.5 mmol/L (3.5-5.1)
[2017-06-11 08:00] VITALS: BP 130/80; PULSE 86; TEMP 36.9; O2SAT 95
[2017-06-11 08:20] VITALS: O2SAT 95
--- NOTE | 2017-06-11 08:28 | Surgery Progress Note ---
Surgery Progress Note Date of Service Jun 11, 2017. Subjective feeling better, some flatus, no BM, tolerating clears Objective Vital Signs: Date Time Temp Pulse Resp B/P (MAP) Pulse Ox O2 Delivery O2 Flow Rate FiO2 06/11/17 08:20 95 Room Air 06/11/17 08:00 36.9 86 12 130/80 (97) 95 Room Air 06/11/17 07:25 Room Air 06/10/17 23:23 37.0 83 18 108/73 (85) 91 Room Air 06/10/17 23:15 Room Air 06/10/17 21:25 91 155/72 (99) 06/10/17 15:30 36.9 91 18 110/70 (83) 92 Room Air 06/10/17 15:30 Room Air 06/10/17 09:14 100 117/74 (88) Abdomen: non distended, soft, + tenderness (minimal LLQ) Laboratory Results: Results Past 24 Hours Test 06/10/17 12:05 06/10/17 17:16 06/10/17 20:19 06/11/17 06:37 Range/Units Bedside Glucose 177 164 179 70-90 mg/dl White Blood Count 6.90 4.8-10.8 K/uL Red Blood Count 3.64 4.2-5.4 M/uL Hemoglobin 10.2 12.0-16.0 g/dL Hematocrit 31.2 37-47 % Mean Corpuscular Volume 85.7 80-100 fL Mean Corpuscular Hemoglobin 28.0 25-34 pg Mean Corpuscular Hemoglobin Concent 32.7 32-36 g/dl RDW Standard Deviation 43.8 36.4-46.3 fL RDW Coefficient of Variation 14.0 11.5-14.5 % Platelet Count 139 130-400 K/uL Mean Platelet Volume 9.1 7.4-10.4 fL Sodium Level 139 136-145 mmol/L Potassium Level 3.5 3.5-5.1 mmol/L Chloride Level 107 98-107 mmol/L Carbon Dioxide Level 29 21-32 mmol/L Anion Gap 3.0 3-11 mmol/L Blood Urea Nitrogen 5 7-18 mg/dl Creatinine 0.55 0.60-1.20 mg/dl Est Creatinine Clear Calc Drug Dose 114.1 ml/min Estimated GFR () 119.0 Estimated GFR (Non- 102.7 BUN/Creatinine Ratio 9.6 10-20 Random Glucose 206 70-99 mg/dl Calcium Level 8.3 8.5-10.1 mg/dl Test 06/11/17 08:00 Range/Units Bedside Glucose 218 70-90 mg/dl Assessment & Plan diverticulitis with abscess afebrile, HR normalized cont IV abx advance to full liquids outpatient colonoscopy/possible elective resection
[2017-06-11] MEDS: PHENYTOIN SODIUM ER 100 MG CAP PO SCH ×2 (09:12→21:28)
[2017-06-11] MEDS: LISINOPRIL 2.5 MG TAB PO SCH (09:12)
[2017-06-11] MEDS: METOPROLOL TARTRATE 50 MG TAB PO SCH ×2 (09:13→21:28)
[2017-06-11] MEDS: ATORVASTATIN 40 MG TAB PO SCH (09:13)
[2017-06-11] MEDS: CITALOPRAM 20 MG TAB PO SCH (09:13)
[2017-06-11] MEDS: OMEGA-3 (PURIFIED FISH OIL) 1 GM CAP PO SCH ×2 (09:14→21:28)
[2017-06-11] MEDS: METRONIDAZOLE / NSS 500 MG in PREMIXED NSS 100 ML IV SCH ×2 (09:17→15:59)
[2017-06-11] MEDS: INSULIN ASPART 100 UNITS/ML 3 ML PEN SC SCH ×4 (09:22→21:00)
[2017-06-11] MEDS: SODIUM CHLORIDE 0.9% 1000ML 1,000 ML IV SCH ×2 (09:23→21:26)
--- NOTE | 2017-06-11 12:53 | Progress Note ---
Subjective Date of Service: Jun 11, 2017. Subjective Pt evaluation today including: conversation w/ patient, physical exam, lab review, review of studies, review of inpatient medication list Saw/examined the patient in room 361 She is doing well, had a BM this morning LLQ pain is there, but much improved no fevers/chills, no nausea/vomiting tolerating full liquid diet Problem List Medical Problems: (1) Diverticulitis of intestine with abscess Status: Acute Review of Systems Constitutional: No fever, No chills Respiratory: No shortness of breath Cardiac: No chest pain Abdomen: + pain, No nausea, No vomiting, No diarrhea, No constipation, No GI bleeding Medications Current Inpatient Medications Medications (Trade) Dose Ordered Sig/Jane Route Start Time Stop Time Status Last Admin Dose Admin Ioversol (Optiray 320) 111 ml UD PRN IV 06/09/17 16:15 06/13/17 16:14 Morphine Sulfate (MoRPHine SULFATE INJ) 4 mg Q4H PRN IV 06/09/17 18:00 06/23/17 17:59 06/10/17 05:45 4 MG Sodium Chloride 1,000 ml @ 100 mls/hr Q10H IV 06/09/17 18:00 07/09/17 17:59 06/11/17 09:23 100 MLS/HR Acetaminophen (Tylenol Tab) 650 mg Q4H PRN PO 06/09/17 18:00 07/09/17 17:59 06/11/17 11:31 650 MG Ondansetron HCl (Zofran Inj) 4 mg Q6H PRN IV 06/09/17 18:00 07/09/17 17:59 06/10/17 05:54 4 MG Insulin Aspart (novoLOG ASPART) SLIDING SCALE If C... ACHS SC 06/09/17 21:00 07/09/17 20:59 06/11/17 09:22 7 UNITS Glucose (Glucose 40% Gel) 15-30 GRAMS 15 GRAMS... UD PRN PO 06/09/17 18:15 07/09/17 18:14 Glucose (Glucose Chew Tab) 4-8 Tablets 4 Tabl... UD PRN PO 06/09/17 18:15 07/09/17 18:14 Dextrose (Dextrose 50% 50ML Syringe) 25-50ML OF 50% DW IV FOR... UD PRN IV 06/09/17 18:15 07/09/17 18:14 Glucagon (Glucagon Inj) 1 mg UD PRN SQ 06/09/17 18:15 07/09/17 18:14 Atorvastatin Calcium (Lipitor Tab) 80 mg DAILY PO 06/10/17 09:00 07/10/17 08:59 06/11/17 09:13 80 MG Lisinopril (Zestril Tab) 2.5 mg DAILY PO 06/10/17 09:00 07/10/17 08:59 06/11/17 09:12 2.5 MG Metoprolol Tartrate (Lopressor Tab) 50 mg BID PO 06/09/17 21:00 07/09/17 20:59 06/11/17 09:13 50 MG Phenytoin Sodium (Dilantin Er Cap) 300 mg BID PO 06/09/17 21:00 07/09/17 20:59 06/11/17 09:12 300 MG Citalopram Hydrobromide (celeXA TAB) 10 mg DAILY PO 06/10/17 09:00 07/10/17 08:59 06/11/17 09:13 10 MG Fish Oil ([place]-3 (Purified Fish Oil) Cap) 1 gm BID PO 06/09/17 21:00 07/09/17 20:59 06/11/17 09:14 1 GM Heparin Sodium (Porcine) (Heparin Sq 5000 Unit/0.5ml) 5,000 unit Q8 SQ 06/09/17 22:00 07/09/17 21:59 06/11/17 05:54 5,000 UNIT Metronidazole 500 mg/Prmx 100 ml @ 100 mls/hr Q8H IV 06/10/17 00:00 06/20/17 00:00 06/11/17 09:17 100 MLS/HR Ciprofloxacin/ Dextrose 400 mg/ Prmx 200 ml @ 100 mls/hr Q12H IV 06/10/17 06:00 06/20/17 05:59 06/11/17 05:44 100 MLS/HR Objective Vital Signs Date Time Temp Pulse Resp B/P (MAP) Pulse Ox O2 Delivery O2 Flow Rate FiO2 06/11/17 08:20 95 Room Air 06/11/17 08:00 36.9 86 12 130/80 (97) 95 Room Air 06/11/17 07:25 Room Air 06/10/17 23:23 37.0 83 18 108/73 (85) 91 Room Air 06/10/17 23:15 Room Air 06/10/17 21:25 91 155/72 (99) 06/10/17 15:30 36.9 91 18 110/70 (83) 92 Room Air 06/10/17 15:30 Room Air Physical Exam General Appearance: no apparent distress Abdomen: normal bowel sounds, soft, + tenderness (mild tenderness at the LLQ) Laboratory Results Last 24 Hours Test 06/10/17 17:16 06/10/17 20:19 06/11/17 06:37 06/11/17 08:00 Bedside Glucose 164 mg/dl 179 mg/dl 218 mg/dl White Blood Count 6.90 K/uL Red Blood Count 3.64 M/uL Hemoglobin 10.2 g/dL Hematocrit 31.2 % Mean Corpuscular Volume 85.7 fL Mean Corpuscular Hemoglobin 28.0 pg Mean Corpuscular Hemoglobin Concent 32.7 g/dl RDW Standard Deviation 43.8 fL RDW Coefficient of Variation 14.0 % Platelet Count 139 K/uL Mean Platelet Volume 9.1 fL Sodium Level 139 mmol/L Potassium Level 3.5 mmol/L Chloride Level 107 mmol/L Carbon Dioxide Level 29 mmol/L Anion Gap 3.0 mmol/L Blood Urea Nitrogen 5 mg/dl Creatinine 0.55 mg/dl Est Creatinine Clear Calc Drug Dose 114.1 ml/min Estimated GFR () 119.0 Estimated GFR (Non- 102.7 BUN/Creatinine Ratio 9.6 Random Glucose 206 mg/dl Calcium Level 8.3 mg/dl Test 06/11/17 11:47 Bedside Glucose 154 mg/dl Assessment and Plan ACUTE SIGMOID DIVERTICULITIS WITH ABSCESS 06/11 our plan is to continue IV abx IVFs Leukocytosis - resolved; afebrile full liquid diet - advance diet as tolerated appreciate surgery consultation colonoscopy in 6 weeks 06/10 plan to continue IV abx. for now clears and advance, possibly on 06/11 no white count, afebrile IVFs will need colonoscopy in 6 weeks Initial episode Afebrile, + leukocytosis (WBC slightly >12K), mild tachycardia (HR 90's-100's), check lactic acid IV Cipro and Flagyl, IVF's, PRN morphine Clear liquid diet Consult general surgery- Dr. Starr made aware by ER provider MODERATE COLON WALL THICKENING Seen on CT, radiology read as likely inflammatory but recommended f/u colonoscopy to exclude underlying mass Alk phos elevated Check CEA Outpatient colonoscopy ADRENAL NODULE CT a/p- 2.3 cm right adrenal nodule. This nodule is indeterminate although statistically benign in the absence of known malignancy. F/u as outpatient DM TYPE 2 Hold metformin and Trulicity Novolog sliding scale coverage HYPERTENSION Stable, continue lisinopril and metoprolol EPILEPSY Controlled- no recent seizure Continue Dilantin DYSLIPIDEMIA Continue statin DVT PROPHYLAXIS SCD's, Heparin SQ DISPOSITION Admission to med/ surg Follows with Dr. Martin for primary care Patient seen in collaboration with Dr. Aguilar. Please see his addendum.
[2017-06-11 15:42] VITALS: BP 112/75; PULSE 77; TEMP 36.7; O2SAT 96
[2017-06-11 23:05] VITALS: BP 108/58; PULSE 77; TEMP 36.7; O2SAT 98
[2017-06-12] MEDS: METRONIDAZOLE / NSS 500 MG in PREMIXED NSS 100 ML IV SCH ×3 (00:23→16:46)
[2017-06-12] MEDS: SODIUM CHLORIDE 0.9% 1000ML 1,000 ML IV SCH (06:01)
[2017-06-12] MEDS: HEPARIN SOD 5000 UNIT/0.5 ML CARP SQ SCH ×3 (06:01→22:41)
[2017-06-12] MEDS: CIPROFLOXACIN / D5W 400 MG in PREMIXED IN D5W 200 ML IV SCH ×2 (06:02→18:45)
[2017-06-12] MEDS: ACETAMINOPHEN 325 MG TAB PO PRN ×2 (06:06→16:47)
[2017-06-12 07:05] LABS: HEMATOCRIT 31.6 % (37-47); MEAN CELL VOLUME 84.5 fL (80-100); MEAN CORPUSCULAR HEMOGLOBIN 27.8 pg (25-34); MEAN CORPUSCULAR HGB CONC 32.9 g/dl (32-36); PLATELET COUNT 152 K/uL (130-400); RED BLOOD COUNT 3.74 M/uL (4.2-5.4); WHITE BLOOD COUNT 5.45 K/uL (4.8-10.8)
[2017-06-12 07:17] VITALS: BP 130/84; PULSE 85; TEMP 36.7; O2SAT 96
[2017-06-12 07:31] LABS: CALCIUM 8.3 mg/dl (8.5-10.1); CREATININE 0.58 mg/dl (0.60-1.20); POTASSIUM 3.6 mmol/L (3.5-5.1)
[2017-06-12 09:07] VITALS: BP 137/80; PULSE 86
[2017-06-12] MEDS: PHENYTOIN SODIUM ER 100 MG CAP PO SCH ×2 (09:09→22:35)
[2017-06-12] MEDS: LISINOPRIL 2.5 MG TAB PO SCH (09:09)
[2017-06-12] MEDS: OMEGA-3 (PURIFIED FISH OIL) 1 GM CAP PO SCH ×2 (09:10→22:34)
[2017-06-12] MEDS: ATORVASTATIN 40 MG TAB PO SCH (09:10)
[2017-06-12] MEDS: METOPROLOL TARTRATE 50 MG TAB PO SCH ×2 (09:11→22:35)
[2017-06-12] MEDS: CITALOPRAM 20 MG TAB PO SCH (09:11)
[2017-06-12] MEDS: INSULIN ASPART 100 UNITS/ML 3 ML PEN SC SCH ×4 (09:13→22:40)
--- NOTE | 2017-06-12 09:23 | Surgery Progress Note ---
Surgery Progress Note Date of Service Jun 12, 2017. Subjective + feeling well, + bowel movement (multiple loose), + diet (fulls), No nausea Objective Vital Signs: Date Time Temp Pulse Resp B/P (MAP) Pulse Ox O2 Delivery O2 Flow Rate FiO2 06/12/17 09:07 86 137/80 (99) 06/12/17 07:17 36.7 85 19 130/84 (99) 96 Room Air 06/11/17 23:05 36.7 77 16 108/58 (75) 98 Room Air 06/11/17 19:20 Room Air 06/11/17 16:00 Room Air 06/11/17 15:42 36.7 77 18 112/75 (87) 96 Room Air Abdomen: non distended, soft, + tenderness (mild suprapubic) Laboratory Results: Results Past 24 Hours Test 06/11/17 11:47 06/11/17 17:02 06/11/17 20:41 06/12/17 06:48 Range/Units Bedside Glucose 154 160 171 70-90 mg/dl White Blood Count 5.45 4.8-10.8 K/uL Red Blood Count 3.74 4.2-5.4 M/uL Hemoglobin 10.4 12.0-16.0 g/dL Hematocrit 31.6 37-47 % Mean Corpuscular Volume 84.5 80-100 fL Mean Corpuscular Hemoglobin 27.8 25-34 pg Mean Corpuscular Hemoglobin Concent 32.9 32-36 g/dl RDW Standard Deviation 42.3 36.4-46.3 fL RDW Coefficient of Variation 13.8 11.5-14.5 % Platelet Count 152 130-400 K/uL Mean Platelet Volume 9.0 7.4-10.4 fL Sodium Level 141 136-145 mmol/L Potassium Level 3.6 3.5-5.1 mmol/L Chloride Level 109 98-107 mmol/L Carbon Dioxide Level 26 21-32 mmol/L Anion Gap 6.0 3-11 mmol/L Blood Urea Nitrogen 5 7-18 mg/dl Creatinine 0.58 0.60-1.20 mg/dl Est Creatinine Clear Calc Drug Dose 108.2 ml/min Estimated GFR () 116.9 Estimated GFR (Non- 100.9 BUN/Creatinine Ratio 8.0 10-20 Random Glucose 199 70-99 mg/dl Calcium Level 8.3 8.5-10.1 mg/dl Assessment & Plan diverticulitis with abscess improved would cont IV abx 24 more hours advance to low residue diet, continue at home outpatient colonoscopy/possible elective resection will see in clinic approx 2 weeks
[2017-06-12 15:29] VITALS: BP 121/78; PULSE 80; TEMP 36.9; O2SAT 96
--- NOTE | 2017-06-12 16:18 | Progress Note ---
Subjective Date of Service: Jun 12, 2017. Subjective Pt evaluation today including: conversation w/ patient, physical exam, lab review, review of studies, review of inpatient medication list Saw/examined the patient in room 361 She is doing okay mild pain persists Improved PO intake no fevers/chills Problem List Medical Problems: (1) Diverticulitis of intestine with abscess Status: Acute Review of Systems Constitutional: No fever, No chills Respiratory: No shortness of breath Cardiac: No chest pain Abdomen: + pain, No nausea, No vomiting, No diarrhea Medications Current Inpatient Medications Medications (Trade) Dose Ordered Sig/Jane Route Start Time Stop Time Status Last Admin Dose Admin Ioversol (Optiray 320) 111 ml UD PRN IV 06/09/17 16:15 06/13/17 16:14 Morphine Sulfate (MoRPHine SULFATE INJ) 4 mg Q4H PRN IV 06/09/17 18:00 06/23/17 17:59 06/10/17 05:45 4 MG Acetaminophen (Tylenol Tab) 650 mg Q4H PRN PO 06/09/17 18:00 07/09/17 17:59 06/12/17 06:06 650 MG Ondansetron HCl (Zofran Inj) 4 mg Q6H PRN IV 06/09/17 18:00 07/09/17 17:59 06/10/17 05:54 4 MG Insulin Aspart (novoLOG ASPART) SLIDING SCALE If C... ACHS SC 06/09/17 21:00 07/09/17 20:59 06/12/17 13:16 7 UNITS Glucose (Glucose 40% Gel) 15-30 GRAMS 15 GRAMS... UD PRN PO 06/09/17 18:15 07/09/17 18:14 Glucose (Glucose Chew Tab) 4-8 Tablets 4 Tabl... UD PRN PO 06/09/17 18:15 07/09/17 18:14 Dextrose (Dextrose 50% 50ML Syringe) 25-50ML OF 50% DW IV FOR... UD PRN IV 06/09/17 18:15 07/09/17 18:14 Glucagon (Glucagon Inj) 1 mg UD PRN SQ 06/09/17 18:15 07/09/17 18:14 Atorvastatin Calcium (Lipitor Tab) 80 mg DAILY PO 06/10/17 09:00 07/10/17 08:59 06/12/17 09:10 80 MG Lisinopril (Zestril Tab) 2.5 mg DAILY PO 06/10/17 09:00 07/10/17 08:59 06/12/17 09:09 2.5 MG Metoprolol Tartrate (Lopressor Tab) 50 mg BID PO 06/09/17 21:00 07/09/17 20:59 06/12/17 09:11 50 MG Phenytoin Sodium (Dilantin Er Cap) 300 mg BID PO 06/09/17 21:00 07/09/17 20:59 06/12/17 09:09 300 MG Citalopram Hydrobromide (celeXA TAB) 10 mg DAILY PO 06/10/17 09:00 07/10/17 08:59 06/12/17 09:11 10 MG Fish Oil ([place]-3 (Purified Fish Oil) Cap) 1 gm BID PO 06/09/17 21:00 07/09/17 20:59 06/12/17 09:10 1 GM Heparin Sodium (Porcine) (Heparin Sq 5000 Unit/0.5ml) 5,000 unit Q8 SQ 06/09/17 22:00 07/09/17 21:59 06/12/17 14:05 5,000 UNIT Metronidazole 500 mg/Prmx 100 ml @ 100 mls/hr Q8H IV 06/10/17 00:00 06/20/17 00:00 06/12/17 08:18 100 MLS/HR Ciprofloxacin/ Dextrose 400 mg/ Prmx 200 ml @ 100 mls/hr Q12H IV 06/10/17 06:00 06/20/17 05:59 06/12/17 06:02 100 MLS/HR Objective Vital Signs Date Time Temp Pulse Resp B/P (MAP) Pulse Ox O2 Delivery O2 Flow Rate FiO2 06/12/17 15:29 36.9 80 18 121/78 (92) 96 Room Air 06/12/17 09:07 86 137/80 (99) 06/12/17 07:30 Room Air 06/12/17 07:17 36.7 85 19 130/84 (99) 96 Room Air 06/11/17 23:05 36.7 77 16 108/58 (75) 98 Room Air 06/11/17 19:20 Room Air Physical Exam General Appearance: no apparent distress Respiratory/Chest: no respiratory distress, no accessory muscle use Abdomen: normal bowel sounds, soft, + tenderness (minimal tenderness) Laboratory Results Last 24 Hours Test 06/11/17 17:02 06/11/17 20:41 06/12/17 06:48 06/12/17 07:49 Bedside Glucose 160 mg/dl 171 mg/dl 195 mg/dl White Blood Count 5.45 K/uL Red Blood Count 3.74 M/uL Hemoglobin 10.4 g/dL Hematocrit 31.6 % Mean Corpuscular Volume 84.5 fL Mean Corpuscular Hemoglobin 27.8 pg Mean Corpuscular Hemoglobin Concent 32.9 g/dl RDW Standard Deviation 42.3 fL RDW Coefficient of Variation 13.8 % Platelet Count 152 K/uL Mean Platelet Volume 9.0 fL Sodium Level 141 mmol/L Potassium Level 3.6 mmol/L Chloride Level 109 mmol/L Carbon Dioxide Level 26 mmol/L Anion Gap 6.0 mmol/L Blood Urea Nitrogen 5 mg/dl Creatinine 0.58 mg/dl Est Creatinine Clear Calc Drug Dose 108.2 ml/min Estimated GFR () 116.9 Estimated GFR (Non- 100.9 BUN/Creatinine Ratio 8.0 Random Glucose 199 mg/dl Calcium Level 8.3 mg/dl Test 06/12/17 11:55 Bedside Glucose 231 mg/dl Assessment and Plan ACUTE SIGMOID DIVERTICULITIS WITH ABSCESS 06/12 appreciate general surgery input plan is for one more day of IV abx. then d/c home in AM with oral abx. colonoscopy in 6 weeks 06/11 our plan is to continue IV abx IVFs Leukocytosis - resolved; afebrile full liquid diet - advance diet as tolerated appreciate surgery consultation colonoscopy in 6 weeks 06/10 plan to continue IV abx. for now clears and advance, possibly on 06/11 no white count, afebrile IVFs will need colonoscopy in 6 weeks Initial episode Afebrile, + leukocytosis (WBC slightly >12K), mild tachycardia (HR 90's-100's), check lactic acid IV Cipro and Flagyl, IVF's, PRN morphine Clear liquid diet Consult general surgery- Dr. Starr made aware by ER provider MODERATE COLON WALL THICKENING Seen on CT, radiology read as likely inflammatory but recommended f/u colonoscopy to exclude underlying mass Alk phos elevated Check CEA Outpatient colonoscopy ADRENAL NODULE CT a/p- 2.3 cm right adrenal nodule. This nodule is indeterminate although statistically benign in the absence of known malignancy. F/u as outpatient DM TYPE 2 Hold metformin and Trulicity Novolog sliding scale coverage HYPERTENSION Stable, continue lisinopril and metoprolol EPILEPSY Controlled- no recent seizure Continue Dilantin DYSLIPIDEMIA Continue statin DVT PROPHYLAXIS SCD's, Heparin SQ DISPOSITION Admission to med/ surg Follows with Dr. Martin for primary care Patient seen in collaboration with Dr. Aguilar. Please see his addendum.
[2017-06-12 23:09] VITALS: BP 132/80; PULSE 81; TEMP 36.8; O2SAT 96
[2017-06-13] MEDS: METRONIDAZOLE / NSS 500 MG in PREMIXED NSS 100 ML IV SCH ×2 (00:04→08:33)
[2017-06-13] MEDS: ACETAMINOPHEN 325 MG TAB PO PRN (00:09)
[2017-06-13] MEDS: CIPROFLOXACIN / D5W 400 MG in PREMIXED IN D5W 200 ML IV SCH (05:51)
[2017-06-13] MEDS: HEPARIN SOD 5000 UNIT/0.5 ML CARP SQ SCH (05:52)
[2017-06-13 07:01] VITALS: BP 127/85; PULSE 75; TEMP 36.7; O2SAT 97
[2017-06-13] MEDS: OMEGA-3 (PURIFIED FISH OIL) 1 GM CAP PO SCH (08:35)
[2017-06-13] MEDS: ATORVASTATIN 40 MG TAB PO SCH (08:36)
[2017-06-13] MEDS: CITALOPRAM 20 MG TAB PO SCH (08:36)
[2017-06-13] MEDS: PHENYTOIN SODIUM ER 100 MG CAP PO SCH (08:36)
[2017-06-13] MEDS: LISINOPRIL 2.5 MG TAB PO SCH (08:36)
[2017-06-13] MEDS: METOPROLOL TARTRATE 50 MG TAB PO SCH (08:36)
[2017-06-13 09:02] LABS: HEMATOCRIT 32.3 % (37-47); MEAN CELL VOLUME 84.3 fL (80-100); MEAN CORPUSCULAR HEMOGLOBIN 27.2 pg (25-34); MEAN CORPUSCULAR HGB CONC 32.2 g/dl (32-36); MEAN PLATELET VOLUME 9.3 fL (7.4-10.4); PLATELET COUNT 181 K/uL (130-400); RED BLOOD COUNT 3.83 M/uL (4.2-5.4); WHITE BLOOD COUNT 4.55 K/uL (4.8-10.8)
[2017-06-13 09:36] LABS: BUN/CREATININE RATIO 11.7 (10-20); CALCIUM 8.5 mg/dl (8.5-10.1); CREATININE 0.6 mg/dl (0.60-1.20); POTASSIUM 3.7 mmol/L (3.5-5.1)
[2017-06-13] MEDS: INSULIN ASPART 100 UNITS/ML 3 ML PEN SC SCH (09:44)
--- NOTE | 2017-06-13 09:54 | Surgery Progress Note ---
Surgery Progress Note Date of Service Jun 13, 2017. Subjective Patient examined at bedside this morning. Afebrile, vitals stable on room air overnight, no acute events. Denies pain this morning. Tolerating regular diet without N/V. Ambulating and voiding without difficulty. Last BM this morning. Feels great and wants to go home. Objective Vital Signs: Date Time Temp Pulse Resp B/P (MAP) Pulse Ox O2 Delivery O2 Flow Rate FiO2 06/13/17 07:39 Room Air 06/13/17 07:01 36.7 75 18 127/85 (99) 97 Room Air 06/13/17 00:00 Room Air 06/12/17 23:09 36.8 81 18 132/80 (97) 96 Room Air 06/12/17 16:30 Room Air 06/12/17 15:29 36.9 80 18 121/78 (92) 96 Room Air General Appearance: WD/WN, no apparent distress Head: normocephalic Neck: supple Respiratory/Chest: lungs clear, normal breath sounds, no respiratory distress Cardiovascular: regular rate, rhythm Abdomen: normal bowel sounds, non tender, non distended, soft Laboratory Results: Results Past 24 Hours Test 06/12/17 11:55 06/12/17 16:47 06/12/17 20:45 06/13/17 07:58 Range/Units Bedside Glucose 231 114 228 70-90 mg/dl White Blood Count 4.55 4.8-10.8 K/uL Red Blood Count 3.83 4.2-5.4 M/uL Hemoglobin 10.4 12.0-16.0 g/dL Hematocrit 32.3 37-47 % Mean Corpuscular Volume 84.3 80-100 fL Mean Corpuscular Hemoglobin 27.2 25-34 pg Mean Corpuscular Hemoglobin Concent 32.2 32-36 g/dl RDW Standard Deviation 41.6 36.4-46.3 fL RDW Coefficient of Variation 13.7 11.5-14.5 % Platelet Count 181 130-400 K/uL Mean Platelet Volume 9.3 7.4-10.4 fL Sodium Level 141 136-145 mmol/L Potassium Level 3.7 3.5-5.1 mmol/L Chloride Level 107 98-107 mmol/L Carbon Dioxide Level 28 21-32 mmol/L Anion Gap 6.0 3-11 mmol/L Blood Urea Nitrogen 7 7-18 mg/dl Creatinine 0.60 0.60-1.20 mg/dl Est Creatinine Clear Calc Drug Dose 104.6 ml/min Estimated GFR () 115.6 Estimated GFR (Non- 99.8 BUN/Creatinine Ratio 11.7 10-20 Random Glucose 207 70-99 mg/dl Calcium Level 8.5 8.5-10.1 mg/dl Test 06/13/17 08:00 Range/Units Bedside Glucose 218 70-90 mg/dl Assessment & Plan Gladis Regan is a 57 year old woman admitted with acute diverticulitis with small adjacent abscess. Clinically improved with non operative management. -Low residue diet as tolerated -Pain has resolved -Discharge to home today -Follow up in clinic in approx 2 weeks to discuss outpatient colonoscopy and possible elective colon resection Kadie Flood MD 06/13/17
--- NOTE | 2017-06-13 12:01 | Progress Note ---
Subjective Date of Service: Jun 13, 2017. Subjective Pt evaluation today including: conversation w/ patient, physical exam, lab review, review of studies, review of inpatient medication list Saw/examined the patient in room 361 No problems/issues to note today, denies abdominal pain, no fevers/chills Problem List Medical Problems: (1) Diverticulitis of intestine with abscess Status: Acute Review of Systems Constitutional: No fever, No chills Abdomen: No pain, No nausea, No vomiting, No diarrhea, No GI bleeding Heme: No abnormal bleeding/bruising Medications Current Inpatient Medications Medications (Trade) Dose Ordered Sig/Jane Route Start Time Stop Time Status Last Admin Dose Admin Ioversol (Optiray 320) 111 ml UD PRN IV 06/09/17 16:15 06/13/17 16:14 Morphine Sulfate (MoRPHine SULFATE INJ) 4 mg Q4H PRN IV 06/09/17 18:00 06/23/17 17:59 06/10/17 05:45 4 MG Acetaminophen (Tylenol Tab) 650 mg Q4H PRN PO 06/09/17 18:00 07/09/17 17:59 06/13/17 00:09 650 MG Ondansetron HCl (Zofran Inj) 4 mg Q6H PRN IV 06/09/17 18:00 07/09/17 17:59 06/10/17 05:54 4 MG Insulin Aspart (novoLOG ASPART) SLIDING SCALE If C... ACHS SC 06/09/17 21:00 07/09/17 20:59 06/13/17 09:44 8 UNITS Glucose (Glucose 40% Gel) 15-30 GRAMS 15 GRAMS... UD PRN PO 06/09/17 18:15 07/09/17 18:14 Glucose (Glucose Chew Tab) 4-8 Tablets 4 Tabl... UD PRN PO 06/09/17 18:15 07/09/17 18:14 Dextrose (Dextrose 50% 50ML Syringe) 25-50ML OF 50% DW IV FOR... UD PRN IV 06/09/17 18:15 07/09/17 18:14 Glucagon (Glucagon Inj) 1 mg UD PRN SQ 06/09/17 18:15 07/09/17 18:14 Atorvastatin Calcium (Lipitor Tab) 80 mg DAILY PO 06/10/17 09:00 9/22/17 08:59 06/13/17 08:36 80 MG Lisinopril (Zestril Tab) 2.5 mg DAILY PO 06/10/17 09:00 07/10/17 08:59 06/13/17 08:36 2.5 MG Metoprolol Tartrate (Lopressor Tab) 50 mg BID PO 06/09/17 21:00 07/09/17 20:59 06/13/17 08:36 50 MG Phenytoin Sodium (Dilantin Er Cap) 300 mg BID PO 06/09/17 21:00 07/09/17 20:59 06/13/17 08:36 300 MG Citalopram Hydrobromide (celeXA TAB) 10 mg DAILY PO 06/10/17 09:00 07/10/17 08:59 06/13/17 08:36 10 MG Fish Oil ([place]-3 (Purified Fish Oil) Cap) 1 gm BID PO 06/09/17 21:00 07/09/17 20:59 06/13/17 08:35 1 GM Heparin Sodium (Porcine) (Heparin Sq 5000 Unit/0.5ml) 5,000 unit Q8 SQ 06/09/17 22:00 07/09/17 21:59 06/12/17 22:41 5,000 UNIT Metronidazole 500 mg/Prmx 100 ml @ 100 mls/hr Q8H IV 06/10/17 00:00 06/20/17 00:00 06/13/17 08:33 100 MLS/HR Ciprofloxacin/ Dextrose 400 mg/ Prmx 200 ml @ 100 mls/hr Q12H IV 06/10/17 06:00 06/20/17 05:59 06/13/17 05:51 100 MLS/HR Objective Vital Signs Date Time Temp Pulse Resp B/P (MAP) Pulse Ox O2 Delivery O2 Flow Rate FiO2 06/13/17 07:39 Room Air 06/13/17 07:01 36.7 75 18 127/85 (99) 97 Room Air 06/13/17 00:00 Room Air 06/12/17 23:09 36.8 81 18 132/80 (97) 96 Room Air 06/12/17 16:30 Room Air 06/12/17 15:29 36.9 80 18 121/78 (92) 96 Room Air Physical Exam General Appearance: no apparent distress Respiratory/Chest: no respiratory distress Abdomen: normal bowel sounds, non tender, soft Laboratory Results Last 24 Hours Test 06/12/17 16:47 06/12/17 20:45 06/13/17 07:58 06/13/17 08:00 Bedside Glucose 114 mg/dl 228 mg/dl 218 mg/dl White Blood Count 4.55 K/uL Red Blood Count 3.83 M/uL Hemoglobin 10.4 g/dL Hematocrit 32.3 % Mean Corpuscular Volume 84.3 fL Mean Corpuscular Hemoglobin 27.2 pg Mean Corpuscular Hemoglobin Concent 32.2 g/dl RDW Standard Deviation 41.6 fL RDW Coefficient of Variation 13.7 % Platelet Count 181 K/uL Mean Platelet Volume 9.3 fL Sodium Level 141 mmol/L Potassium Level 3.7 mmol/L Chloride Level 107 mmol/L Carbon Dioxide Level 28 mmol/L Anion Gap 6.0 mmol/L Blood Urea Nitrogen 7 mg/dl Creatinine 0.60 mg/dl Est Creatinine Clear Calc Drug Dose 104.6 ml/min Estimated GFR () 115.6 Estimated GFR (Non- 99.8 BUN/Creatinine Ratio 11.7 Random Glucose 207 mg/dl Calcium Level 8.5 mg/dl Assessment and Plan ACUTE SIGMOID DIVERTICULITIS WITH ABSCESS 06/13 plan for d/c home today will d/c on oral Cipro and Flagyl for a total of 2 weeks colonoscopy in 6 weeks outpatient PCP and general surgery follow-up 06/12 appreciate general surgery input plan is for one more day of IV abx. then d/c home in AM with oral abx. colonoscopy in 6 weeks 06/11 our plan is to continue IV abx IVFs Leukocytosis - resolved; afebrile full liquid diet - advance diet as tolerated appreciate surgery consultation colonoscopy in 6 weeks 06/10 plan to continue IV abx. for now clears and advance, possibly on 06/11 no white count, afebrile IVFs will need colonoscopy in 6 weeks Initial episode Afebrile, + leukocytosis (WBC slightly >12K), mild tachycardia (HR 90's-100's), check lactic acid IV Cipro and Flagyl, IVF's, PRN morphine Clear liquid diet Consult general surgery- Dr. Starr made aware by ER provider MODERATE COLON WALL THICKENING Seen on CT, radiology read as likely inflammatory but recommended f/u colonoscopy to exclude underlying mass Alk phos elevated Check CEA Outpatient colonoscopy ADRENAL NODULE CT a/p- 2.3 cm right adrenal nodule. This nodule is indeterminate although statistically benign in the absence of known malignancy. F/u as outpatient DM TYPE 2 Hold metformin and Trulicity Novolog sliding scale coverage HYPERTENSION Stable, continue lisinopril and metoprolol EPILEPSY Controlled- no recent seizure Continue Dilantin DYSLIPIDEMIA Continue statin DVT PROPHYLAXIS SCD's, Heparin SQ DISPOSITION Admission to med/ surg Follows with Dr. Martin for primary care Patient seen in collaboration with Dr. Aguilar. Please see his addendum.
[2017-06-13] MEDS ORDERED: CIPR-255 PO (12:08)
[2017-06-13] MEDS ORDERED: METR-163 PO (12:08)
--- NOTE | 2017-06-13 12:10 | Discharge Instructions ---
Discharge Instructions Date of Service Jun 13, 2017. Admission Reason for Admission: Diverticulitis Of Intestine With Abcess Discharge Discharge Diagnosis / Problem: Acute Sigmoid Diverticulitis with Abscess Discharge Goals Goal(s): Decrease discomfort, Improve function, Diagnostic testing, Therapeutic intervention Activity Recommendations Activity Limitations: resume your previous activity . Instructions / Follow-Up Instructions / Follow-Up Please follow-up with Dr. Martin on Thursday, June 17 at 10:45AM * You will be sent home with Dulce (antibiotics) - take these for the next 10 days * You will need to follow-up with general surgery as an outpatient * You will need a colonoscopy in 6 weeks * Your diabetes is uncontrolled, please have your Ha1c rechecked as outpatient Current Hospital Diet Patient's current hospital diet: Diabetes Type 2 Diet, Low Fiber Diet Discharge Diet Recommended Diet: Diabetes Type 2 Diet, Low Fiber Diet Pending Studies Studies pending at discharge: no Medical Emergencies . Who to Call and When: Medical Emergencies: If at any time you feel your situation is an emergency, please call 911 immediately. . Non-Emergent Contact Non-Emergency issues call your: Primary Care Provider . . "Provider Documentation" section prepared by Sravanthi Aguilar. . VTE Core Measure Inpt VTE Proph given/why not?: Unfractionated heparin SQ, SCD's
--- NOTE | 2017-06-13 12:11 | Discharge Summary ---
Discharge Summary Date of Service Jun 13, 2017. Discharge Summary Admission Date: Jun 09, 2017 at 18:08 Discharge Date: Jun 13, 2017 Discharge Disposition: Home Principal Diagnosis: Acute Sigmoid Diverticulitis with Abscess Uncontrolled DM2 Medication Reconciliation New Medications: Ciprofloxacin Hcl (Cipro) 500 Mg Tab 500 MG PO BID for 10 Days, #20 TAB Metronidazole (Flagyl) 500 Mg Tab 500 MG PO TID for 10 Days, #30 TAB Continued Medications: Aspirin (Aspirin Ec) 81 Mg Tab 81 MG PO DAILY Atorvastatin (Lipitor) 80 Mg Tab 80 MG PO DAILY, TAB Citalopram Hydrobromide (Citalopram Hydrobromide) 10 Mg Tab 1 TAB PO DAILY for 90 Days, #90 TAB 3 Refills Dulaglutide (Trulicity) 0.75 Mg/0.5 Ml Inj 0.75 MG SQ WK Ergocalciferol (Vitamin D 27829 Unit) 50,000 Unit Cap 74447 UNIT PO WK, CAP Lisinopril (Lisinopril) 2.5 Mg Tab 2.5 MG PO DAILY Metformin Hcl (Glucophage) 1,000 Mg Tab 1000 MG PO BID, TAB Metoprolol Tartrate (Lopressor) (Lopressor) 50 Mg Tab 50 MG PO BID, TAB [place]-3 Fatty Acids (Benedict 3) 1 Cap Cap 1 CAP PO BID Phenytoin Sodium (Dilantin) 100 Mg Cap 300 MG PO BID, CAP Admission Information HPI (per Admitting provider): This is a 57 y/o female with PMH of DM type 2, HTN, HL, epilepsy, who presents to the ED with abdominal pain. Patient reports LLQ abdominal pain x 2 weeks. Initially thought she had a UTI, took Azo and started to feel better, then pain worsened again yesterday. Describes pain as stabbing in LLQ. Morphine in ER helped but now pain is back rated 10/10. No provoking factors. Had 2 episodes of diarrhea yesterday then formed stool, last BM earlier today. Appetite is normal. Denies fevers, chills, weakness, dizziness, chest pain, SOB, N/V, GI bleeding, dysuria, frequency, weight loss. Denies recent travel or antibiotics. No prior episode of diverticulitis. Never had colonoscopy. No abdominal surgeries. Physical Exam (per Admitting): General Appearance: WD/WN, no apparent distress Head: normocephalic, atraumatic Eyes: normal inspection, PERRL, EOMI ENT: hearing grossly normal, pharynx normal Neck: supple, trachea midline Respiratory/Chest: lungs clear, normal breath sounds, no respiratory distress, no accessory muscle use Cardiovascular: no murmur, + tachycardia (mildly tachycardic, HR 100, regular rhythm) Abdomen/GI: normal bowel sounds, soft, + pertinent finding (tenderness across entire lower abdomen, especially LLQ. no rebound. no guarding. ) Extremities/Musculoskelatal: no calf tenderness, no pedal edema Neurologic/Psych: alert, normal mood/affect, oriented x 3 Skin: normal color, warm/dry Hospital Course ACUTE SIGMOID DIVERTICULITIS WITH ABSCESS 06/13 plan for d/c home today will d/c on oral Cipro and Flagyl for a total of 2 weeks colonoscopy in 6 weeks outpatient PCP and general surgery follow-up 06/12 appreciate general surgery input plan is for one more day of IV abx. then d/c home in AM with oral abx. colonoscopy in 6 weeks 06/11 our plan is to continue IV abx IVFs Leukocytosis - resolved; afebrile full liquid diet - advance diet as tolerated appreciate surgery consultation colonoscopy in 6 weeks 06/10 plan to continue IV abx. for now clears and advance, possibly on 06/11 no white count, afebrile IVFs will need colonoscopy in 6 weeks Initial episode Afebrile, + leukocytosis (WBC slightly >12K), mild tachycardia (HR 90's-100's), check lactic acid IV Cipro and Flagyl, IVF's, PRN morphine Clear liquid diet Consult general surgery- Dr. Starr made aware by ER provider MODERATE COLON WALL THICKENING Seen on CT, radiology read as likely inflammatory but recommended f/u colonoscopy to exclude underlying mass Alk phos elevated Check CEA Outpatient colonoscopy ADRENAL NODULE CT a/p- 2.3 cm right adrenal nodule. This nodule is indeterminate although statistically benign in the absence of known malignancy. F/u as outpatient DM TYPE 2 Hold metformin and Trulicity Novolog sliding scale coverage HYPERTENSION Stable, continue lisinopril and metoprolol EPILEPSY Controlled- no recent seizure Continue Dilantin DYSLIPIDEMIA Continue statin DVT PROPHYLAXIS SCD's, Heparin SQ DISPOSITION Admission to med/ surg Follows with Dr. Martin for primary care Total time spent on discharge = 45 minutes This includes examination of the patient, discharge planning, medication reconciliation, and communication with other providers. Discharge Instructions Please follow-up with Dr. Martin on June 17 at 10:45AM * You will be sent home with Sole and Judy (antibiotics) - take these for the next 10 days * You will need to follow-up with general surgery as an outpatient * You will need a colonoscopy in 6 weeks * Your diabetes is uncontrolled, please have your Ha1c rechecked as outpatient
[2017-06-13 12:18] VITALS: BP 127/85; PULSE 75; TEMP 36.7; O2SAT 97
== END 2017-06-13 12:48 | disposition home or self-care (01) | DRG 392 ==
LOC: C.EDB 12:21 → C.MSW 18:08 → ENRESERV 18:15
PROVIDERS: ADMIT Family Medicine; ATTEND Family Medicine
DX: K57.20 Diverticulitis of large intestine with perforation and abscess without bleeding (principal); D72.829 Elevated white blood cell count, unspecified; E11.9 Type 2 diabetes mellitus without complications; I10 Essential (primary) hypertension; G40.909 Epilepsy, unspecified, not intractable, without status epilepticus; E78.5 Hyperlipidemia, unspecified; Z80.8 Family history of malignant neoplasm of other organs or systems; Z79.82 Long term (current) use of aspirin; E27.8 Other specified disorders of adrenal gland

== ENCOUNTER → 2017-07-20 | Day surgery (SDC) | payer BC ==
[2017-07-13 08:17] VITALS: Ht 160 cm; Wt 84.1 kg
[~2017-07-20] VITALS: Ht 160 cm; Wt 84.1 kg
[~2017-07-20] MED LIST changes: -ADVIN25050 INH; -ALBUAER2 INH; +ASPI81TA28 PO; +ATOR-26 PO; +CITA10TA4 PO; -DLN100; -DRV100 PO; +DULA1INJ SQ; +ENDOSCOPIC MARKER 5 ML SYR ONE; +ERGO500037 PO; +LIDOCAINE HCL 2% 2 ML VIAL (20MG/ML) ONE; +LSN25 PO; +METF-384 PO; +METO50TA16 PO; +OMEG12006 PO; +PHENYLEPHRINE 100MCG/ML 5ML SYR ONE; +PHN/100 PO; +PROPOFOL IV EMULSION 10 MG/ML 20 ML VIAL IV ONE
--- NOTE | 2017-07-20 12:10 | Endo History and Physical ---
History & Physical Date of Service: Jul 20, 2017. Chief Complaint: History of diverticulitis Referring Physician: Dr. Alvin Starr and Dr. Sonia Martin History of Present Illness 57 yo CF who presents for colonoscopy secondary to recent diverticulitis. Past Surgical History Hx Cardiac Surgery: No Hx Internal Defibrillator: No Hx Pacemaker: No Hx Abdominal Surgery: No Hx of Implantable Prosthesis: No Hx Post-Op Nausea and Vomiting: No Hx Cancer Surgery: No Hx Thoracic Surgery: No Hx Orthopedic: Yes (LEFT KNEE (KNEE CAP SURGERY)) Hx Urinary Tract Surgery: No Family History None Social History Smoking Status: Never Smoker Hx Substance Use: No Hx Alcohol Use: No Allergies Coded Allergies: No Known Allergies (Verified , 07/13/17) Current Medications Reported Home Medications Medications Dose Route/Sig Max Daily Dose Days Date Category Lopressor (Metoprolol Tartrate) 50 Mg Tab 25 Mg PO BID 06/09/17 Reported Lisinopril 2.5 Mg Tab 2.5 Mg PO QAM 06/09/17 Reported [place] 3 ([place]-3 Fatty Acids) 1 Cap Cap 1 Cap PO BID 06/09/17 Reported Aspirin Ec (Aspirin) 81 Mg Tab 81 Mg PO QAM 06/09/17 Reported Dilantin (Phenytoin Sodium) 100 Mg Cap 300 Mg PO BID 06/09/17 Reported Trulicity (Dulaglutide) 0.75 Mg/0.5 Ml Inj 0.75 Mg SQ WED 06/09/17 Reported Glucophage (Metformin Hcl) 1,000 Mg Tab 1,000 Mg PO BID 06/09/17 Reported Citalopram Hydrobromide 10 Mg Tab 1 Tab PO QAM 90 06/09/17 Reported Lipitor (Atorvastatin Calcium) 80 Mg Tab 80 Mg PO QAM 06/09/17 Reported Vitamin D 27436 Unit (Ergocalciferol) 50,000 Unit Cap 50,000 Unit PO WK 06/09/17 Reported Vital Signs Weight (Kilograms): 84.09 Height (Feet): 5 Height (Inches): 3 Date Time Temp Pulse Resp B/P (MAP) Pulse Ox O2 Delivery O2 Flow Rate FiO2 07/20/17 11:28 36.7 78 18 132/74 (93) 95 Room Air Physical Exam General Appearance: WD/WN, no apparent distress Respiratory/Chest: Auscultation: breath sounds normal Cardiovascular: Heart Auscultation: RRR Abdomen: Bowel Sounds: normal Inspection & Palpation: soft, non-distended, no tenderness, guarding & rebound Assessment and Plan Assessment: 57 yo CF who presents for colonoscopy secondary to recent diverticulitis. Plan: Proceed with colonoscopy.
--- NOTE | 2017-07-20 13:12 | GI REPORT ---
Procedure Date: 07/20/2017 12:33 PM Procedure: Colonoscopy Indications: Abnormal CT of the GI tract Medicines: Monitored Anesthesia Care Complications: No immediate complications. Estimated Blood Loss: Estimated blood loss: none. Procedure: Pre-Anesthesia Assessment: - Prior to the procedure, a History and Physical was performed, and patient medications and allergies were reviewed. The patient's tolerance of previous anesthesia was also reviewed. The risks and benefits of the procedure and the sedation options and risks were discussed with the patient. All questions were answered, and informed consent was obtained. Prior Anticoagulants: The patient has taken aspirin, last dose was 2 days prior to procedure. ASA Grade Assessment: II - A patient with mild systemic disease. After reviewing the risks and benefits, the patient was deemed in satisfactory condition to undergo the procedure. After I obtained informed consent, the scope was passed under direct vision. Throughout the procedure, the patient's blood pressure, pulse, and oxygen saturations were monitored continuously. The scope was introduced through the anus and advanced to the terminal ileum. The colonoscopy was performed without difficulty. The patient tolerated the procedure well. The quality of the bowel preparation was good. The terminal ileum, ileocecal valve, appendiceal orifice, and rectum were photographed. Findings: An infiltrative partially obstructing medium-sized mass was found in the sigmoid colon. The mass was circumferential. The mass measured four cm in length. In addition, its diameter measured twenty mm. Oozing was present. This was biopsied with a cold forceps for histology. Area was tattooed with an injection of 5 mL of Jayla ink. Non-bleeding internal hemorrhoids were found during retroflexion. The hemorrhoids were small. Impression: - Likely malignant partially obstructing tumor in the sigmoid colon. Biopsied. Tattooed. - Non-bleeding internal hemorrhoids. Recommendation: - Resume previous diet. - Continue present medications. - Repeat colonoscopy for surveillance based on pathology results. - Return to primary care physician as previously scheduled. - Refer to a surgeon at appointment to be scheduled. - Check liver enzymes (AST, ALT, alkaline phosphatase, bilirubin), hemogram with white blood cell count and platelets, PT/INR and CEA in the morning. - Perform CT scan (computed tomography) of the chest at appointment to be scheduled. Ketan Gregory, 07/20/2017 1:11:59 PM This report has been signed electronically. Note Initiated On: 07/20/2017 12:33 PM I attest to the content of the Intraoperative Record and orders documented therein, exceptions below
--- NOTE | 2017-07-20 13:20 | Anesthesiology Progress Note ---
Anesthesia Post Op Note Date & Time Jul 20, 2017 at 13:20 Vital Signs Pain Intensity: 0 Vital Signs Past 12 Hours Date Time Temp Pulse Resp B/P (MAP) Pulse Ox O2 Delivery O2 Flow Rate FiO2 07/20/17 13:10 77 18 119/67 (84) 97 Room Air 07/20/17 13:02 76 12 106/65 (79) 99 Room Air 07/20/17 11:28 36.7 78 18 132/74 (93) 95 Room Air Notes Mental Status: alert / awake / arousable, participated in evaluation Pt Amnestic to Procedure: Yes Nausea / Vomiting: adequately controlled Pain: adequately controlled Airway Patency, RR, SpO2: stable & adequate BP & HR: stable & adequate Hydration State: stable & adequate Anesthetic Complications: no major complications apparent
[2017-07-20 13:26] VITALS: BP 109/74; PULSE 73; O2SAT 98
--- NOTE | 2017-07-20 13:42 | Discharge Instructions ---
Endoscopy Patient Instructions Date / Procedure(s) Performed Jul 20, 2017. Colonoscopy Allergy Information Coded Allergies: No Known Allergies (Verified , 07/13/17) Discharge Date / Findings Jul 20, 2017. Colon mass with biopsies Internal hemorrhoids Medication Instructions Stopped Medication(s): last dose ASA Thursday.Metformin yesterday OK to resume all medications today as prescribed Reported Home Medications Medications Dose Route/Sig Max Daily Dose Days Date Category Lopressor (Metoprolol Tartrate) 50 Mg Tab 25 Mg PO BID 06/09/17 Reported Lisinopril 2.5 Mg Tab 2.5 Mg PO QAM 06/09/17 Reported [place] 3 ([place]-3 Fatty Acids) 1 Cap Cap 1 Cap PO BID 06/09/17 Reported Aspirin Ec (Aspirin) 81 Mg Tab 81 Mg PO QAM 06/09/17 Reported Dilantin (Phenytoin Sodium) 100 Mg Cap 300 Mg PO BID 06/09/17 Reported Trulicity (Dulaglutide) 0.75 Mg/0.5 Ml Inj 0.75 Mg SQ WED 06/09/17 Reported Glucophage (Metformin Hcl) 1,000 Mg Tab 1,000 Mg PO BID 06/09/17 Reported Citalopram Hydrobromide 10 Mg Tab 1 Tab PO QAM 90 06/09/17 Reported Lipitor (Atorvastatin Calcium) 80 Mg Tab 80 Mg PO QAM 06/09/17 Reported Vitamin D 03613 Unit (Ergocalciferol) 50,000 Unit Cap 50,000 Unit PO WK 06/09/17 Reported Provider Instructions Activity Restrictions - No exercising or heavy lifting for 24 hours. - Do not drink alcohol the day of the procedure. - Do not drive a car or operate machinery until the day after the procedure. - Do not make any important decisions or sign important papers in 24 hours after the procedure. Following Day: - Return to full activity which may include returning to work/school. Diet Start your diet with liquids and light foods (jello, soup, juice, toast). Then eat your usual diet if not nauseated. Treatment For Common After Affects For mild abdominal pain, bloating, or excessive gas: - Rest - Eat lightly - Lie on right side Follow-Up Information Follow-up with Dr. Alvin Starr and Dr. Sonia Martin as scheduled Anesthesia Information What You Should Know You have had a procedure that required some medicine to reduce anxiety and discomfort. This treatment is called moderate sedation. After receiving the treatment, you may be sleepy, but you will be able to breathe on your own. The effects of the treatment may last for several hours. Follow these instructions along with Activity/Diet recommendations noted above: * Do NOT do anything where dizziness or clumsiness would be dangerous. * Rest quietly at home today, then you can be up and about tomorrow. * Have a responsible person stay with you the rest of today. * You may have had an I.V. today. If so, you may take the dressing off later today. Recommendations Call your doctor if: * Trouble breathing * Continuous vomiting for more than 24 hours * Temperature above 101 degrees * Severe abdominal pain or bloating * Pain not relieved by pain medicine ordered * There is increased drainage or redness from any incision * A large amount of rectal bleeding greater than 2-3 tablespoons. (If you had a polyp/s removed or have hemorrhoids, a small amount of blood - from the rectum is to be expected.) * You have any unanswered questions or concerns. IN THE EVENT OF A SERIOUS EMERGENCY, GO TO THE NEAREST EMERGENCY ROOM Your discharge instructions were prepared by provider Ketan Gregory. Patient Instructions Signature Page Gladis Regan Patient (or Guardian) Signature/Date: I have read and understand the instructions given to me by my caregivers. Caregiver/RN/Doctor Signature/Date: The above-named patient and/or guardian has received patient instructions on this date. + Original Patient Signature Page (only) stays with chart. Please make copy for patient.
== END | disposition home or self-care (01) ==
LOC: C.GI 11:06
PROVIDERS: ATTEND Internal Medicine
DX: D12.5 Benign neoplasm of sigmoid colon (principal); K64.8 Other hemorrhoids; Z87.19 Personal history of other diseases of the digestive system; Z79.82 Long term (current) use of aspirin; Z79.899 Other long term (current) drug therapy

== ENCOUNTER → 2017-07-22 | Outpatient (CLI) | payer BC ==
[~2017-07-22] MED LIST changes: -ENDOSCOPIC MARKER 5 ML SYR ONE; -LIDOCAINE HCL 2% 2 ML VIAL (20MG/ML) ONE; +OPTIRAY 320 IV PRN; -PHENYLEPHRINE 100MCG/ML 5ML SYR ONE; -PROPOFOL IV EMULSION 10 MG/ML 20 ML VIAL IV ONE
[2017-07-22 12:10] LABS: ALT/SGPT 51 U/L (12-78); BLOOD UREA NITROGEN 11 mg/dl (7-18); BUN/CREATININE RATIO 16.5 (10-20); CALCIUM 9.1 mg/dl (8.5-10.1); CARBON DIOXIDE 27 mmol/L (21-32); CHLORIDE 107 mmol/L (98-107); CREATININE 0.68 mg/dl (0.60-1.20); GLUCOSE 210 mg/dl (70-99); POTASSIUM 3.9 mmol/L (3.5-5.1); SODIUM 142 mmol/L (136-145)
[2017-07-22 12:13] LABS: ALKALINE PHOSPHATASE 223 U/L (45-117); AST/SGOT 27 U/L (15-37)
[2017-07-22 12:47] LABS: PROTHROMBIN TIME (PATIENT) 10.3 SECONDS (9.0-12.0)
[2017-07-22 13:06] LABS: BASO % 0.3 %; BASO ABS # 0.02 K/uL (0-0.2); COMPLETE YES; EOS % 4.3 %; HEMATOCRIT 37.4 % (37-47); IG% 0.3 %; LYMPH % 29.1 %; LYMPH ABS # 1.81 K/uL (1.2-3.4); MEAN CELL VOLUME 84.2 fL (80-100); MEAN CORPUSCULAR HEMOGLOBIN 28.4 pg (25-34); MEAN CORPUSCULAR HGB CONC 33.7 g/dl (32-36); MONO % 7.7 %; NEUT % 58.3 %; PLATELET COUNT 197 K/uL (130-400); RED BLOOD COUNT 4.44 M/uL (4.2-5.4); WHITE BLOOD COUNT 6.23 K/uL (4.8-10.8)
--- NOTE | 2017-07-22 13:19 | DIAGNOSTIC IMAGING REPORT ---
CHEST CT WITH CONTRAST CT DOSE: 351.57 mGy.cm HISTORY: K63.9 Mass of colon [id number] TECHNIQUE: Multiaxial CT images of the chest were performed following the intravenous administration of contrast. A dose lowering technique was utilized adhering to the principles of ALARA. COMPARISON: None. FINDINGS: The central airways are patent. No pleural effusions. No pneumothorax. The lungs are clear. The visualized liver, spleen, and left adrenal gland are unremarkable. No change in the 2.3 cm indeterminate right adrenal gland nodule. Tiny gastric diverticulum. A 1.2 cm left thyroid nodule. No mediastinal or hilar lymphadenopathy. The heart is normal in size. The mediastinal vascular structures are within normal limits. No suspicious lytic or blastic osseous lesions. IMPRESSION: 1. No evidence for metastatic disease within the chest. 2. A 1.2 cm left thyroid nodule. 3. No change in the 2.3 cm indeterminate right adrenal gland nodule. Electronically signed by: Kenyon Lacy M.D. 07/22/2017 1:18 PM Dictated Date/Time: 07/22/2017 1:06 PM
== END | disposition home or self-care (01) ==
LOC: C.CTS 11:00
PROVIDERS: ATTEND Internal Medicine
DX: K63.9 Disease of intestine, unspecified (principal); E04.1 Nontoxic single thyroid nodule

== ENCOUNTER → 2017-07-30 | Outpatient (CLI) | payer BC ==
[~2017-07-30] MED LIST changes: -OPTIRAY 320 IV PRN
== END | disposition home or self-care (01) ==
LOC: C.CPL 12:10
PROVIDERS: ATTEND Surgery
DX: K63.9 Disease of intestine, unspecified (principal)

== ENCOUNTER → 2017-09-15 | Day surgery (SDC) | payer BC ==
[2017-09-14 09:28] VITALS: BMI 31.0
[~2017-09-15] VITALS: Ht 160 cm; Wt 81.8 kg
[~2017-09-15] MED LIST changes: +ATROPINE SULFATE 0.1 MG/ML 5ML SYR IV PRN; +BUPIVACAINE/EPINEPHRINE 0.5% MPF 1:200,000 30 ML VIAL ONE; +CEFAZOLIN 2000MG IV PUSH 10 ML IV SCH; +FENTANYL CITRATE INJ 50 MCG/1 ML 2 ML VIAL IV PRN; +FENTANYL CITRATE INJ 50 MCG/1 ML 2 ML VIAL ONE; +HEPARIN SOD (PORCINE) 1000 UNIT/ML 10 ML VIAL ONE; +HYDR-5688 PO; +HYDROCODONE/ACETAMOPHEN 5/325MG TAB PO PRN; +LACTATED RINGER'S 1000ML 1,000 ML IV SCH; +LIDOCAINE HCL 2% 2 ML VIAL (20MG/ML) ONE; +MIDAZOLAM HCL 1 MG/ML 2ML VIAL ONE; +ONDANSETRON INJ 2 MG/ML 2 ML VIAL IV PRN; +ONDANSETRON INJ 2 MG/ML 2 ML VIAL ONE; +PROPOFOL IV EMULSION 10 MG/ML 20 ML VIAL IV ONE; +SODIUM CHLORIDE 0.9% 1000ML 1,000 ML IV SCH
[2017-09-15 06:50] VITALS: BP 175/89; PULSE 88; TEMP 36.4; O2SAT 97; Ht 160 cm; Wt 81.8 kg
--- NOTE | 2017-09-15 08:16 | History & Physical Bridge Note ---
H&P Re-Evaluation Bridge Note: I have examined the patient, reviewed the History & Physical and in the interval since the performance of the History & Physical I have noted the following changes of clinical significance: No changes noted
--- NOTE | 2017-09-15 09:20 | Discharge Instructions ---
Discharge Instructions Date of Service Sep 15, 2017. Admission Reason for Admission: Colon Cancer, Diabetes Discharge Discharge Diagnosis / Problem: Colon Cancer, Diabetes Discharge Goals Goal(s): Improve function Activity Recommendations Activity Limitations: as noted below Lifting Limitations: no more than 10 pounds Exercise/Sports Limitations: until after follow-up appointment May Resume Sexual Activity: after follow-up appointment Shower/Bathe: tomorrow Driving or Machine Use: resume 1 day after discharge Instructions / Follow-Up Instructions / Follow-Up Please follow-up with Dr. Starr in the office in 1-2 weeks. Please call the office at [phone] with any questions or concerns. Current Hospital Diet Patient's current hospital diet: Discharge Diet Recommended Diet: Regular Diet Procedures Procedures Performed: Insertion of Mediport Left Subclavian Pending Studies Studies pending at discharge: no Medical Emergencies . Who to Call and When: Medical Emergencies: If at any time you feel your situation is an emergency, please call 911 immediately. . Non-Emergent Contact Non-Emergency issues call your: Primary Care Provider, Surgeon Call Non-Emergent contact if: temperature is above 101.5, your pain is not controlled, wound has increased drainage, wound has increased redness . "Provider Documentation" section prepared by Radha Huertas. . VTE Core Measure Inpt VTE Proph given/why not?: Dayne Alston
--- NOTE | 2017-09-15 09:21 | [facility] Operative Report ---
Operative Report Operative Date Sep 15, 2017. Pre-Operative Diagnosis Colon Cancer Post-Operative Diagnosis Same as preop Procedure(s) Performed Insertion of Mediport Left Subclavian Surgeon Dr. Starr Clinical Informatics Director Surgeon(s) Radha Huertas PA-C Estimated Blood Loss 5 ml Findings normal anatomy Specimens None per Surgeon Anesthesia mac Complication(s) None Disposition Recovery Room / PACU Description of Procedure After informed consent was obtained the patient was taken to the operating room and placed in supine position with the left arm tucked. IV sedation was administered by anesthesia and titrated to effect. After the patient was adequately sedated a rolled towel was placed between her shoulder blades. She was placed in a slightly Trendelenburg position. Left upper chest was sterilely prepped and draped in usual fashion. I made a horizontal incision just below the angle of the clavicle and carried down through the soft tissue using electrocautery. Prior to doing this I had injected Marcaine to create a field block as well as use Marcaine to block the periosteum of the left clavicle. Once down to the pectoralis muscle I used a blunt finger dissection to create a housing pocket for the port. An 18-gauge finder needle was used to access the left subclavian vein without difficulty. We advanced a guidewire into the superior vena cava using fluoroscopic guidance. Once we verified position we pulled out the needle and advanced a vascular dilator over the guidewire again using fluoroscopy. Once this was in place we removed the guidewire. We cut The catheter to appropriate length and connected it to the port itself and placed the port into the housing pocket. We withdrew the vascular dilator and advanced the catheter through the peel-away sheath into the superior vena cava. We then peeled the sheath away leaving the catheter behind. Again we used fluoroscopy to verify positioning. The port itself withdrew dark venous blood without difficulty and we flushed thoroughly with heparin solution. We then secured the port to the pectoralis muscle using 0 Ethibond with 3 point fixation. The wound was thoroughly irrigated and closed in 2 layers using 3-0 Monocryl for both layers. Sterile dressing was applied. The patient was awaken and transferred recovery in stable condition. Postoperative portable chest x-ray is currently pending to verify catheter position and rule out pneumothorax I attest to the content of the Intraoperative Record and any orders documented therein. Any exceptions are noted below.
--- NOTE | 2017-09-15 09:40 | DIAGNOSTIC IMAGING REPORT ---
CHEST ONE VIEW PORTABLE HISTORY: s/p port placement COMPARISON: Chest CT 07/22/2017. FINDINGS: Left subclavian Port-A-Cath terminates in the SVC. The heart is normal in size. The lungs are clear. No pleural effusions. No pneumothorax. IMPRESSION: No acute process. Electronically signed by: Kenyon Lacy M.D. 09/15/2017 9:39 AM Dictated Date/Time: 09/15/2017 9:38 AM
[2017-09-15 09:45] VITALS: BP 131/72; PULSE 81; TEMP 36.8; O2SAT 96
[2017-09-15 10:15] VITALS: BP 144/80; PULSE 92; TEMP 36.7; O2SAT 96
--- NOTE | 2017-09-15 10:39 | Anesthesiology Progress Note ---
Anesthesia Post Op Note Date & Time Sep 15, 2017 at 10:39 Vital Signs Pain Intensity: 0 Vital Signs Past 12 Hours Date Time Temp Pulse Resp B/P (MAP) Pulse Ox O2 Delivery O2 Flow Rate FiO2 09/15/17 10:15 36.7 92 18 144/80 96 Room Air 09/15/17 09:45 36.8 81 18 131/72 96 Room Air 09/15/17 09:35 36.1 80 12 121/81 97 Room Air 09/15/17 09:25 81 12 117/76 96 Room Air 09/15/17 09:16 36.2 84 12 127/74 100 Room Air 09/15/17 06:50 36.4 88 18 175/89 (117) 97 Room Air Notes Mental Status: alert / awake / arousable, participated in evaluation Pt Amnestic to Procedure: Yes Nausea / Vomiting: adequately controlled Pain: adequately controlled Airway Patency, RR, SpO2: stable & adequate BP & HR: stable & adequate Hydration State: stable & adequate Anesthetic Complications: no major complications apparent
== END | disposition home or self-care (01) ==
LOC: C.ACU 06:23
PROVIDERS: ATTEND Surgery
DX: C18.9 Malignant neoplasm of colon, unspecified (principal); I10 Essential (primary) hypertension; E78.5 Hyperlipidemia, unspecified; E11.9 Type 2 diabetes mellitus without complications; R56.9 Unspecified convulsions; Z87.891 Personal history of nicotine dependence; Z79.82 Long term (current) use of aspirin; Z79.84 Long term (current) use of oral hypoglycemic drugs; Z79.899 Other long term (current) drug therapy

== ENCOUNTER → 2017-09-29 | Outpatient (CLI) | payer BC ==
[~2017-09-29] MED LIST changes: -ATROPINE SULFATE 0.1 MG/ML 5ML SYR IV PRN; -BUPIVACAINE/EPINEPHRINE 0.5% MPF 1:200,000 30 ML VIAL ONE; -CEFAZOLIN 2000MG IV PUSH 10 ML IV SCH; -FENTANYL CITRATE INJ 50 MCG/1 ML 2 ML VIAL IV PRN; -FENTANYL CITRATE INJ 50 MCG/1 ML 2 ML VIAL ONE; -HEPARIN SOD (PORCINE) 1000 UNIT/ML 10 ML VIAL ONE; -HYDR-5688 PO; -HYDROCODONE/ACETAMOPHEN 5/325MG TAB PO PRN; -LACTATED RINGER'S 1000ML 1,000 ML IV SCH; -LIDOCAINE HCL 2% 2 ML VIAL (20MG/ML) ONE; -MIDAZOLAM HCL 1 MG/ML 2ML VIAL ONE; -ONDANSETRON INJ 2 MG/ML 2 ML VIAL IV PRN; -ONDANSETRON INJ 2 MG/ML 2 ML VIAL ONE; -PROPOFOL IV EMULSION 10 MG/ML 20 ML VIAL IV ONE; -SODIUM CHLORIDE 0.9% 1000ML 1,000 ML IV SCH
[2017-09-29 17:36] LABS: BASO % 0.4 %; BASO ABS # 0.02 K/uL (0-0.2); COMPLETE YES; HEMATOCRIT 36.2 % (37-47); LYMPH % 35.3 %; LYMPH ABS # 1.76 K/uL (1.2-3.4); MEAN CELL VOLUME 84.8 fL (80-100); MEAN CORPUSCULAR HEMOGLOBIN 28.8 pg (25-34); MEAN PLATELET VOLUME 8.8 fL (7.4-10.4); MONO % 10.4 %; NEUT % 48.9 %; PLATELET COUNT 149 K/uL (130-400); RED BLOOD COUNT 4.27 M/uL (4.2-5.4); WHITE BLOOD COUNT 4.99 K/uL (4.8-10.8)
[2017-09-29 18:12] LABS: ALT/SGPT 77 U/L (12-78); AST/SGOT 41 U/L (15-37); BLOOD UREA NITROGEN 15 mg/dl (7-18); BUN/CREATININE RATIO 21.1 (10-20); CALCIUM 8.6 mg/dl (8.5-10.1); CARBON DIOXIDE 27 mmol/L (21-32); CHLORIDE 103 mmol/L (98-107); GLUCOSE 249 mg/dl (70-99); POTASSIUM 4.2 mmol/L (3.5-5.1); SODIUM 136 mmol/L (136-145)
[2017-09-29 18:14] LABS: ALB/GLOB RATIO 1.1 (0.9-2); ALKALINE PHOSPHATASE 236 U/L (45-117)
== END | disposition home or self-care (01) ==
LOC: C.LAB 17:14
PROVIDERS: ATTEND Internal Medicine Hematology & Oncology
DX: C18.7 Malignant neoplasm of sigmoid colon (principal)